=== PATIENT | female | born 1960 | race African-American/Black ===

== ENCOUNTER 2017-11-01 21:44 | Emergency (ER) | payer OTHER ==
[~2017-11-01] VITALS: Ht 165.1 cm; Wt 112.5 kg
[2017-11-01 21:51] VITALS: BP 116/70
[2017-11-01] MEDS ORDERED: ASPIR 8181 MG ORAL (21:55)
[2017-11-01] MEDS ORDERED: CEPHALEXIN500 M1 ORAL (21:55)
[2017-11-01] MEDS ORDERED: HYDROCHLOROTH12.5 M2 ORAL (21:55)
[2017-11-01] MEDS ORDERED: IBUPROFEN600 MG ORAL (21:55)
[2017-11-01] MEDS ORDERED: ATENOLOL25 MG ORAL (21:55)
[2017-11-01] MEDS ORDERED: SULFAMETHOXAZO480 ML ORAL (21:55)
[2017-11-01 22:20] VITALS: BP 116/70
--- NOTE | 2017-11-01 22:36 | Emergency Room Report ---
History of Present Illness General Chief Complaint: Skin Rash/Abscess Source: Patient Present Illness HPI 57-year-old female p/w redness/swelling/bump to right shoulder for 2 days. pain to the area. + Fever, no nausea vomiting. Patient states that she went to her primary care doctor today, who performed an incision and drainage of her abscess, states that she took one dose of her antibiotics today, she was given a prescription for Keflex and Bactrim Patient states that she feels well however states that she came to the emergency room because of the fever, has not taken any Tylenol, took one dose of Motrin She tolerated her antibiotics well, no nausea no vomiting no abdominal pain Allergies: Coded Allergies: No Known Allergies (Unverified , 11/01/17) Patient History Past Medical History: see triage record Past Surgical History: none Pertinent Family History: none Last Menstrual Period: 2010 Now: No Reviewed Nursing Documentation: PMH: Agreed, PSxH: Agreed Nursing Documentation-PMH Hx Hypertension: Yes Review of Systems All Other Systems: negative except mentioned in HPI Physical Exam Vital Signs Date Time Temp Pulse Resp B/P (MAP) Pulse Ox O2 Delivery O2 Flow Rate FiO2 11/01/17 21:45 101.1 80 18 116/70 96 Room Air Sp02 EP Interpretation: reviewed, normal General Appearance: normal inspection, well appearing, no apparent distress, alert, GCS 15, non-toxic Head: normocephalic, atraumatic Eyes: bilateral eye normal inspection, bilateral eye PERRL, bilateral eye EOMI ENT: normal ENT inspection, normal pharynx, normal voice, moist mucus membranes Neck: normal inspection, full range of motion, supple Respiratory: normal inspection, lungs clear, normal breath sounds, no respiratory distress, no retraction, no wheezing, speaking full sentences, chest symmetrical Cardiovascular #1: normal inspection, regular rate, rhythm, normal capillary refill Cardiovascular #2: 2+ radial (R), 2+ radial (L) Gastrointestinal: normal inspection, non tender, soft, non-distended, no guarding Musculoskeletal: normal inspection, back normal, normal range of motion, non- tender Neurologic: normal inspection, alert, oriented x3, responsive, motor strength/ tone normal, sensory intact, normal gait, speech normal Psychiatric: normal inspection, judgement/insight normal, memory normal Skin: other - Right shoulder with abscess status post incision and drainage, there is no bloody or purulent drainage currently, mild surrounding erythema about 3 x 3 cm, full range of motion of shoulder, no pain out of proportion Medical Decision Making Diagnostic Impression: Primary Impression: Abscess ER Course 57-year-old female p/w bump/swelling to R shoulder DDX: abscess status post incision and drainage today Plan: Tylenol ER course: Patient has remained nontoxic during ED stay, ambulatory Due to patient's benign exam, and patient is able to tolerate by mouth antibiotics, there is no indication for further workup or admission in the emergency room at this time. Disposition: Patient discharged to home. Patient is instructed to continue taking her Keflex and doxycycline as prescribed by her doctor. Patient instructed to take Tylenol and Motrin for fever and pain. Patient instructed to follow up in ED or primary care doctor's office to wound recheck in 48 hours without fail. Patient cautioned to return to ED immediately if there is rapid spread of rash, high fever or chills, inability to take by mouth antibiotics Patient verbalized understanding and agrees with plan. Please note that this Emergency Department Report was dictated using [employer] rust eradicator technology software, occasionally this can lead to erroneous entry secondary to interpretation by the dictation equipment. Last Vital Signs Date Time Temp Pulse Resp B/P (MAP) Pulse Ox O2 Delivery O2 Flow Rate FiO2 11/01/17 22:20 101.1 82 16 116/70 98 Room Air Disposition: HOME, SELF-CARE Condition: Stable Referrals: NON PHYSICIAN (PCP) Patient Instructions: Abscess Additional Instructions: Please continue to take both of your antibiotics as instructed by her primary care doctor Please take Tylenol 500 mg every 4 hours, or Motrin 600 mg every 8 hours Please return to the emergency room if you are experiencing high fever and chills despite medication, intractable nausea and vomiting, inability to take medications by mouth, or rapid spread of rash Otherwise please followup with your primary care doctor in 48 hours for wound recheck Suzanne Farmer M.D. Nov 01, 2017 22:36
== END 2017-11-01 22:20 | disposition home or self-care (01) ==
LOC: EMR 22:02
DX: L02.413 Cutaneous abscess of right upper limb (principal); I10 Essential (primary) hypertension
CPT/HCPCS: 99283

== ENCOUNTER 2017-11-03 15:06 | Inpatient (IN) | payer OTHER ==
[~2017-11-03] VITALS: Ht 165.1 cm; Wt 115.7 kg
[~2017-11-03 15:06] MED LIST: ASPIR 8181 MG ORAL; ATENOLOL25 MG ORAL; CEPHALEXIN500 M1 ORAL; HYDROCHLOROTH12.5 M2 ORAL; IBUPROFEN600 MG ORAL; SULFAMETHOXAZO480 ML ORAL
[2017-11-03] MEDS ORDERED: ATORVASTATIN CA40 MG ORAL (15:19)
[2017-11-03 15:24] VITALS: BP 143/64
[2017-11-03] MEDS ORDERED: Ampicillin/Sulbactam Sod 3 GM in NS 110 ML IVPB ONE (15:45)
[2017-11-03] MEDS ORDERED: Unasyn 3gm Inj ONE (16:03)
--- NOTE | 2017-11-03 16:05 | Diagnostic Imaging Report ---
Indication: Pain Technique: XRAY Chest 1v Comparison: None Findings: Heart size and mediastinal contours are within normal limits given technique. There is no focal consolidation, pneumothorax or pleural effusion. Mild degenerative changes of the thoracic spine. Osseous structures demonstrate no acute abnormality. Impression: No radiographic evidence of acute cardiopulmonary disease.
--- NOTE | 2017-11-03 16:11 | Emergency Room Report ---
History of Present Illness General Chief Complaint: Skin Rash/Abscess Source: Patient Present Illness HPI 57-year-old female presents ED for evaluation. Patient notes pain and swelling to her right shoulder. Was seen 2 days ago by PMD for an abscess which restrained. Was placed on antibiotics. Patient states it is getting worse. Notes increased redness and induration. Denies fevers chills. Denies chest pain or shortness of breath. States she is able to raise her shoulder. No other aggravating relieving factors. Denies any other associated symptoms Allergies: Coded Allergies: No Known Allergies (Unverified , 11/01/17) Patient History Past Medical History: DM, HTN Past Surgical History: none Pertinent Family History: none Social History: Denies: smoking, alcohol use, drug use Last Menstrual Period: hysterectomy on 2010 Now: No Immunizations: UTD Reviewed Nursing Documentation: PMH: Agreed, PSxH: Agreed Nursing Documentation-PMH Past Medical History: No History, Except For Hx Hypertension: Yes Review of Systems All Other Systems: negative except mentioned in HPI Physical Exam Vital Signs Date Time Temp Pulse Resp B/P (MAP) Pulse Ox O2 Delivery O2 Flow Rate FiO2 11/03/17 15:14 99.9 100 18 114/69 95 Room Air Sp02 EP Interpretation: reviewed, normal General Appearance: no apparent distress, alert, GCS 15, non-toxic, obese Head: normocephalic, atraumatic Eyes: bilateral eye normal inspection, bilateral eye PERRL ENT: hearing grossly normal, normal pharynx, no angioedema, normal voice Neck: full range of motion, supple/symm/no masses Respiratory: chest non-tender, lungs clear, normal breath sounds, speaking full sentences Cardiovascular #1: regular rate, rhythm, no edema Cardiovascular #2: 2+ carotid (R), 2+ carotid (L), 2+ radial (R), 2+ radial (L) , 2+ dorsalis pedis (R), 2+ dorsalis pedis (L) Gastrointestinal: normal bowel sounds, non tender, soft, non-distended, no guarding, no rebound Rectal: deferred Genitourinary: normal inspection, no CVA tenderness Musculoskeletal: back normal, gait/station normal, normal range of motion Neurologic: alert, oriented x3, responsive, motor strength/tone normal, sensory intact, speech normal Psychiatric: judgement/insight normal, memory normal, mood/affect normal, no suicidal/homicidal ideation Reflexes: 3+ bicep (R), 3+ bicep (L), 3+ tricep (R), 3+ tricep (L), 3+ knee (R) , 3+ knee (L) Skin: other - abscess with surrounding induration to R shoulder. discharge noted Lymphatic: no adenopathy Medical Decision Making Diagnostic Impression: Primary Impression: Shoulder abscess Additional Impression: Elevated troponin ER Course Hospital Course 57-year-old female presents to ED with discharge and induration/swelling to the right shoulder. Status post I&D performed by PMD 2 days ago Differential diagnoses include: Cellulitis, abscess, joint capsule infection Clinical course Patient placed on stretcher. After initial history and physical I ordered labs , blood Cx, UA, IVFs, CXR, CT labs reviewed -noted leukocytosis, Hb/Hct stable, Cr 1.4, trop 0.113, lactic acid ok CXR unremarkable EKG - NSR, no acute ischemic changes interpreted by nm CT shows soft tissue edema and infiltrate. no definiteve abscess. no joint involvement Patient denies any chest pain antibiotics given. Case discussed with Dr Herrera and he agreed to accept the patient to his service for further care and support Dr Mcmahon (surgery) consulted Diagnosis - R shoulder abscess, elevated troponin Patient admitted to telemetry in serious condition Labs Test 11/03/17 15:45 11/03/17 16:00 Urine Color Brown Urine Appearance Clear Urine pH 5 (4.5-8.0) Urine Specific [place] 1.020 (1.005-1.035) Urine Protein 2+ (NEGATIVE) Urine Glucose (UA) Negative (NEGATIVE) Urine Ketones 1+ (NEGATIVE) Urine Occult Blood 3+ (NEGATIVE) Urine Nitrite Negative (NEGATIVE) Urine Bilirubin Negative (NEGATIVE) Urine Urobilinogen 4 MG/DL (0.0-1.0) Urine Leukocyte Esterase 2+ (NEGATIVE) Urine RBC 5-10 /HPF (0 - 2) Urine WBC 2-4 /HPF (0 - 2) Urine Squamous Epithelial Cells Few /LPF (NONE/OCC) Urine Amorphous Sediment Few /LPF (NONE) Urine Bacteria Few /HPF (NONE) Urine Yeast Few /HPF (NONE) White Blood Count 14.0 K/UL (4.8-10.8) Red Blood Count 4.52 M/UL (4.20-5.40) Hemoglobin 12.6 G/DL (12.0-16.0) Hematocrit 38.4 % (37.0-47.0) Mean Corpuscular Volume 85 FL (80-99) Mean Corpuscular Hemoglobin 27.9 PG (27.0-31.0) Mean Corpuscular Hemoglobin Concent 32.8 G/DL (32.0-36.0) Red Cell Distribution Width 11.7 % (11.6-14.8) Platelet Count 301 K/UL (150-450) Mean Platelet Volume 8.1 FL (6.5-10.1) Neutrophils (%) (Auto) 81.0 % (45.0-75.0) Lymphocytes (%) (Auto) 8.9 % (20.0-45.0) Monocytes (%) (Auto) 9.2 % (1.0-10.0) Eosinophils (%) (Auto) 0.3 % (0.0-3.0) Basophils (%) (Auto) 0.6 % (0.0-2.0) Sodium Level 133 MMOL/L (136-145) Potassium Level 3.4 MMOL/L (3.5-5.1) Chloride Level 97 MMOL/L (98-107) Carbon Dioxide Level 28 MMOL/L (21-32) Anion Gap 8 mmol/L (5-15) Blood Urea Nitrogen 14 mg/dL (7-18) Creatinine 1.4 MG/DL (0.55-1.30) Estimat Glomerular Filtration Rate 47.3 mL/min (>60) Glucose Level 92 MG/DL (74-106) Lactic Acid Level 1.20 mmol/L (0.66-2.22) Calcium Level 9.5 MG/DL (8.5-10.1) Total Bilirubin 0.5 MG/DL (0.2-1.0) Aspartate Amino Transf (AST/SGOT) 28 U/L (15-37) Alanine Aminotransferase (ALT/SGPT) 42 U/L (12-78) Alkaline Phosphatase 79 U/L (46-116) Total Creatine Kinase 137 U/L (26-308) Creatine Kinase MB 1.8 NG/ML (0.0-3.6) Creatine Kinase MB Relative Index 1.3 Troponin I 0.115 ng/mL (0.000-0.056) Total Protein 8.9 G/DL (6.4-8.2) Albumin 3.6 G/DL (3.4-5.0) Globulin 5.3 g/dL Albumin/Globulin Ratio 0.7 (1.0-2.7) EKG Diagnostic Results Rate: normal Rhythm: NSR ST Segments: no acute changes ASA given to the pt in ED: No Rhythm Strip Diag. Results EP Interpretation: yes Rhythm: NSR, no PVC's, no ectopy Chest X-Ray Diagnostic Results Chest X-Ray Diagnostic Results : Chest X-Ray Ordered: Yes # of Views/Limited/Complete: 1 View Indication: Chest Pain EP Interpretation: Yes Interpretation: no consolidation, no effusion, no pneumothorax, no acute cardiopulmonary disease Impression: No acute disease Electronically Signed by: Electronically signed by Mehrdad Tellez MD CT/MRI/US Diagnostic Results CT/MRI/US Diagnostic Results : Imaging Test Ordered: CT R upper extremity with contast Impression Soft tissue edema and infiltration about the right shoulder. No drainable collection. No destructive bony changes. Surrounding nodes. Last Vital Signs Date Time Temp Pulse Resp B/P (MAP) Pulse Ox O2 Delivery O2 Flow Rate FiO2 11/03/17 15:14 99.9 100 18 114/69 95 Room Air Status: improved Disposition: ADMITTED INPATIENT Condition: Serious MEHRDAD TELLEZ M.D. Nov 03, 2017 16:11
[2017-11-03] MEDS ORDERED: Morphine Sulfate 4mg/ml Inj IVP ONE (16:15)
[2017-11-03 16:16] LABS: APPEARANCE,URINE CLEAR; KETONES,URINE 1+ (NEGATIVE); LEUKOCYTE ESTERASE ,URINE 2+ (NEGATIVE); NITRITE,URINE NEGATIVE (NEGATIVE); PH,URINE 5 (4.5-8.0); PROTEIN,URINE 2+ (NEGATIVE); UROBILINOGEN,URINE 4 MG/DL (0.0-1.0)
[2017-11-03 16:22] LABS: BASOPHILS % (AUTO) 0.6 % (0.0-2.0); EOSINOPHILS % (AUTO) 0.3 % (0.0-3.0); LYMPHOCYTES % (AUTO) 8.9 % (20.0-45.0); MEAN CORPUSCULAR HEMOGLOBIN 27.9 PG (27.0-31.0); MEAN CORPUSCULAR HGB CONC 32.8 G/DL (32.0-36.0); MEAN CORPUSCULAR VOLUME 85 FL (80-99); MEAN PLATELET VOLUME 8.1 FL (6.5-10.1); MONOCYTES % (AUTO) 9.2 % (1.0-10.0); PLATELET COUNT 301 K/UL (150-450); RED BLOOD COUNT 4.52 M/UL (4.20-5.40); RED CELL DISTRIBUTION WIDTH 11.7 % (11.6-14.8)
[2017-11-03 16:26] LABS: AMORPHOUS SEDIMENT,UR FEW /LPF; BACTERIA,URINE FEW /HPF; SQUAMOUS EPITHELIAL CELL,UR FEW /LPF (NONE/OCC); YEAST,URINE FEW /HPF
[2017-11-03 16:27] LABS: ANION GAP 8 mmol/L (5-15); CALCIUM 9.5 MG/DL (8.5-10.1); CARBON DIOXIDE 28 MMOL/L (21-32); CHLORIDE 97 MMOL/L (98-107); CREATININE 1.4 MG/DL (0.55-1.30); GLOMERULAR FILTRATION RATE 47.3 mL/min (>60); POTASSIUM 3.4 MMOL/L (3.5-5.1); SODIUM 133 MMOL/L (136-145)
[2017-11-03 16:40] LABS: ALANINE AMINOTRANSFERASE 42 U/L (12-78); ALBUMIN/GLOBULIN RATIO 0.7 (1.0-2.7); ASPARTATE AMINO TRANSFERASE 28 U/L (15-37); CKMB 1.8 NG/ML (0.0-3.6); TOTAL PROTEIN 8.9 G/DL (6.4-8.2)
[2017-11-03 17:00] VITALS: BP 127/65
[2017-11-03] MEDS ORDERED: BACTRIM DS TAB1 EAC1 ORAL (17:33)
[2017-11-03] MEDS ORDERED: CALCIUM500 M2 PO (17:36)
[2017-11-03] MEDS ORDERED: VITAMIN D5000 UNI1 PO (17:36)
[2017-11-03] MEDS ORDERED: Miralax 17gm pkt ORAL PRN (18:45)
[2017-11-03] MEDS ORDERED: Albuterol/Ipratropium 3ml neb HHN PRN (18:45)
[2017-11-03] MEDS ORDERED: Morphine Sulfate 2mg/ml Inj IVP PRN (18:45)
[2017-11-03] MEDS ORDERED: Nitroglycerin Subl 0.4mg tab SL PRN (18:45)
[2017-11-03 19:20] VITALS: BP 120/61
[2017-11-03] MEDS ORDERED: Cefepime HCl 2 GM in D5W 110 ML IV SCH (20:00)
--- NOTE | 2017-11-03 20:08 | Consultation ---
History of Present Illness General Date patient seen: Nov 03, 2017 Chief Complaint: Skin Rash/Abscess Referring physician: Dr. Herrera Present Illness HPI 57 yo gentle lady with pmhx morbid obesity, hysterectomy, uterine fibroids, dyslipidemia, right shoulder pain due to a superficial abscess and HTN presents to [facility] emergency room with complaint of a shoulder abscess/wound status post unsuccessfull incision and drainage that keeps growing and causing significant pain and distress. I was asked to consult on this case from an internal medicine point of view, the patient says that initially a few weeks ago she noticed a small pimple on her right shoulder. She presented to her primary care physician a few days ago for a incision and drainage of her large shoulder faruncle, she was told by her primary care doctor that the wound was too extensive to be treated in the office, she presents to the emergency room for assistance with respect to her shoulder wound status post incomplete incision and drainage. Allergies: Coded Allergies: [place] (Verified Allergy, Unknown, 11/04/17) Medication History Scheduled Aspirin* (Aspir 81*), 81 MG ORAL DAILY, (Reported) Atenolol* (Tenormin*), 25 MG ORAL DAILY, (Reported) Atorvastatin Calcium* (Atorvastatin Calcium*), 40 MG ORAL BEDTIME, (Reported) Calcium Carbonate (Calcium), 500 MG PO DAILY, (Reported) Cephalexin* (Cephalexin*), 500 MG ORAL EVERY 6 HOURS, (Reported) Cephalexin* (Keflex*), 500 MG ORAL EVERY 6 HOURS, (Reported) Cholecalciferol (Vitamin D3) (Vitamin D), 5,000 UNIT PO DAILY, (Reported) Hydrochlorothiazide* (Hydrochlorothiazide*), 12.5 MG ORAL DAILY, (Reported) Ibuprofen* (Motrin*), 800 MG ORAL FOUR TIMES A DAY, (Reported) Trimethoprim/Sulfamethoxazole 160/800* (Bactrim Ds Tablet*), 1 TAB ORAL TWICE A DAY, (Reported) Patient History Healthcare decision maker Resuscitation status Advanced Directive on File Past Medical/Surgical History Past Medical/Surgical History: (1) Abscess (2) HTN (hypertension) Review of Systems Musculoskeletal: Reports: joint pain, joint swelling, muscle pain, muscle stiffness Skin: Reports: lesions, other - right shoulder wound Physical Exam General Appearance: mild distress, overweight, obese Lines, tubes and drains: peripheral HEENT: normocephalic, atraumatic, anicteric, PERRL Neck: non-tender, normal alignment, supple, normal inspection Respiratory/Chest: chest wall non-tender, lungs clear, normal breath sounds, no respiratory distress, no accessory muscle use Breasts: no masses Cardiovascular/Chest: normal peripheral pulses, normal rate, regular rhythm, no JVD Abdomen: normal bowel sounds, non tender, soft, no organomegaly, no mass Genitourinary/Rectal: normal genital exam, normal rectal exam Extremities: no calf tenderness, normal capillary refill, other - large open wound right shoulder with dried blood and dried purulence bandages Skin Exam: palled, rash 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, no motor/sensory deficits Last 24 Hour Vital Signs Date Time Temp Pulse Resp B/P (MAP) Pulse Ox O2 Delivery O2 Flow Rate FiO2 11/03/17 19:20 99.0 92 24 120/61 96 Room Air 11/03/17 19:20 99.0 92 24 120/61 96 Room Air 11/03/17 17:00 88 19 127/65 97 Room Air 11/03/17 15:24 99.5 91 17 143/64 95 Room Air 11/03/17 15:14 99.9 100 18 114/69 95 Room Air Intake and Output 11/03/17 11/04/17 19:00 07:00 Intake Total 1110 ml Balance 1110 ml Intake Oral 0 ml IV Total 1110 ml # Voids 1 Laboratory Tests Test 11/03/17 15:45 11/03/17 16:00 Urine Color Brown Urine Appearance Clear Urine pH 5 (4.5-8.0) Urine Specific [place] 1.020 (1.005-1.035) Urine Protein 2+ (NEGATIVE) H Urine Glucose (UA) Negative (NEGATIVE) Urine Ketones 1+ (NEGATIVE) H Urine Occult Blood 3+ (NEGATIVE) H Urine Nitrite Negative (NEGATIVE) Urine Bilirubin Negative (NEGATIVE) Urine Urobilinogen 4 MG/DL (0.0-1.0) H Urine Leukocyte Esterase 2+ (NEGATIVE) H Urine RBC 5-10 /HPF (0 - 2) H Urine WBC 2-4 /HPF (0 - 2) Urine Squamous Epithelial Cells Few /LPF (NONE/OCC) Urine Amorphous Sediment Few /LPF (NONE) H Urine Bacteria Few /HPF (NONE) Urine Yeast Few /HPF (NONE) H White Blood Count 14.0 K/UL (4.8-10.8) H Red Blood Count 4.52 M/UL (4.20-5.40) Hemoglobin 12.6 G/DL (12.0-16.0) Hematocrit 38.4 % (37.0-47.0) Mean Corpuscular Volume 85 FL (80-99) Mean Corpuscular Hemoglobin 27.9 PG (27.0-31.0) Mean Corpuscular Hemoglobin Concent 32.8 G/DL (32.0-36.0) Red Cell Distribution Width 11.7 % (11.6-14.8) Platelet Count 301 K/UL (150-450) Mean Platelet Volume 8.1 FL (6.5-10.1) Neutrophils (%) (Auto) 81.0 % (45.0-75.0) H Lymphocytes (%) (Auto) 8.9 % (20.0-45.0) L Monocytes (%) (Auto) 9.2 % (1.0-10.0) Eosinophils (%) (Auto) 0.3 % (0.0-3.0) Basophils (%) (Auto) 0.6 % (0.0-2.0) Sodium Level 133 MMOL/L (136-145) L Potassium Level 3.4 MMOL/L (3.5-5.1) L Chloride Level 97 MMOL/L (98-107) L Carbon Dioxide Level 28 MMOL/L (21-32) Anion Gap 8 mmol/L (5-15) Blood Urea Nitrogen 14 mg/dL (7-18) Creatinine 1.4 MG/DL (0.55-1.30) H Estimat Glomerular Filtration Rate 47.3 mL/min (>60) Glucose Level 92 MG/DL (74-106) Lactic Acid Level 1.20 mmol/L (0.66-2.22) Calcium Level 9.5 MG/DL (8.5-10.1) Total Bilirubin 0.5 MG/DL (0.2-1.0) Aspartate Amino Transf (AST/SGOT) 28 U/L (15-37) Alanine Aminotransferase (ALT/SGPT) 42 U/L (12-78) Alkaline Phosphatase 79 U/L (46-116) Total Creatine Kinase 137 U/L (26-308) Creatine Kinase MB 1.8 NG/ML (0.0-3.6) Creatine Kinase MB Relative Index 1.3 Troponin I 0.115 ng/mL (0.000-0.056) Total Protein 8.9 G/DL (6.4-8.2) H Albumin 3.6 G/DL (3.4-5.0) Globulin 5.3 g/dL Albumin/Globulin Ratio 0.7 (1.0-2.7) L Height (Feet): 5 Height (Inches): 5.00 Weight (Pounds): 248 Medications Current Medications Medications (Trade) Dose Ordered Sig/Luke Route PRN Reason Start Time Stop Time Status Last Admin Dose Admin Acetaminophen (Tylenol) 650 mg Q4H PRN ORAL T>100.5 11/03/17 18:45 12/03/17 18:44 Albuterol/ Ipratropium (Albuterol/ Ipratropium) 3 ml Q4H PRN HHN Shortness of Breath 11/03/17 18:45 11/08/17 18:44 Aspirin (Ecotrin) 81 mg DAILY ORAL 11/04/17 09:00 12/04/17 08:59 Atenolol (Tenormin) 25 mg DAILY ORAL 11/04/17 09:00 12/04/17 08:59 Atorvastatin Calcium (Lipitor) 40 mg BEDTIME ORAL 11/03/17 21:00 12/03/17 20:59 Cefepime HCl 2 gm/ Dextrose 55 ml @ 110 mls/hr Q12HR@0800,2000 IV 11/03/17 20:00 11/10/17 19:59 Dextrose (Dextrose 50%) STAT PRN IV Hypoglycemia 11/03/17 18:45 12/03/17 18:44 Heparin Sodium (Porcine) (Heparin 5000 units/ml) 5,000 units EVERY 12 HOURS SUBQ 11/03/17 21:00 12/03/17 20:59 Morphine Sulfate (Morphine Sulfate) 2 mg Q4H PRN IVP Moderate Pain (Pain Scale 4-6) 11/03/17 18:45 11/10/17 18:44 Nitroglycerin (Ntg) 0.4 mg Q5MIN X 3 DOSES PRN SL Prn Chest Pain 11/03/17 18:45 12/03/17 18:44 Ondansetron HCl (Zofran) 4 mg Q6H PRN IVP Nausea & Vomiting 11/03/17 18:45 12/03/17 18:44 Polyethylene Glycol (Miralax) 17 gm DAILYPRN PRN ORAL Constipation 11/03/17 18:45 12/03/17 18:44 Temazepam (Restoril) 15 mg HSPRN PRN ORAL Insomnia 11/03/17 21:00 11/10/17 20:59 Vancomycin HCl (Vanco rx to dose) 1 ea DAILY PRN MISC . 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
[2017-11-03 21:00] VITALS: BP 121/60
[2017-11-03] MEDS ORDERED: Vancomycin 2 GM in D5W 500ml 550 ML IVPB ONE (21:00)
[2017-11-03] MEDS ORDERED: Heparin 5000 units/ml inj SUBQ SCH (21:00)
[2017-11-03] MEDS: Atorvastatin 20mg tab ORAL SCH (21:28)
[2017-11-03] MEDS: Cefepime HCl 2 GM in D5W 55 ML IV SCH (21:29)
[2017-11-04] VITALS: BP 112/58
[2017-11-04] MEDS ORDERED: Vancomycin 1 GM in D5W 275 ML IV SCH (00:30)
[2017-11-04 04:00] VITALS: BP 104/50
[2017-11-04] MEDS ORDERED: guaiFENesin DM 100mg/5ml ORAL PRN (05:15)
[2017-11-04 06:18] LABS: PROTHROMBIN TIME 10.2 SEC (9.30-11.50)
[2017-11-04 06:21] LABS: BASOPHILS % (AUTO) 0.6 % (0.0-2.0); EOSINOPHILS % (AUTO) 0.7 % (0.0-3.0); LYMPHOCYTES % (AUTO) 13.8 % (20.0-45.0); MEAN CORPUSCULAR HEMOGLOBIN 28.4 PG (27.0-31.0); MEAN CORPUSCULAR HGB CONC 33.2 G/DL (32.0-36.0); MEAN CORPUSCULAR VOLUME 85 FL (80-99); MEAN PLATELET VOLUME 7.1 FL (6.5-10.1); MONOCYTES % (AUTO) 14.4 % (1.0-10.0); NEUTROPHILS % (AUTO) 70.6 % (45.0-75.0); PLATELET COUNT 241 K/UL (150-450); RED BLOOD COUNT 3.84 M/UL (4.20-5.40); RED CELL DISTRIBUTION WIDTH 11.8 % (11.6-14.8); WHITE BLOOD COUNT 9.5 K/UL (4.8-10.8)
[2017-11-04 06:29] LABS: ALANINE AMINOTRANSFERASE 35 U/L (12-78); ALBUMIN/GLOBULIN RATIO 0.6 (1.0-2.7); ANION GAP 8 mmol/L (5-15); ASPARTATE AMINO TRANSFERASE 26 U/L (15-37); CALCIUM 8.9 MG/DL (8.5-10.1); CARBON DIOXIDE 25 MMOL/L (21-32); CHLORIDE 101 MMOL/L (98-107); CREATININE 1.2 MG/DL (0.55-1.30); GLOMERULAR FILTRATION RATE 56.6 mL/min (>60); POTASSIUM 3.5 MMOL/L (3.5-5.1); SODIUM 134 MMOL/L (136-145); TOTAL PROTEIN 7.4 G/DL (6.4-8.2)
--- NOTE | 2017-11-04 07:59 | Pulmonology Progress Note ---
Assessment/Plan Assessment/Plan ASSESSMENT Elevated troponin , mild elevation, 1 occasion only - resolved R shoulder abscess cellulitis shoulder s/p I&D R shoulder abscess at the bedside 11/04 leukocytosis HTN morbid obesity dehydration dyslipidemia PLAN OF CARE MALIKA serial troponin , second troponin negative cardio eval ECHO with pEF 70% and RVSP of 21 patient with no cardiac symptoms, likely atypical CP BP management with BB continue ASA statin O2 HHN prn CT R shoulder with Evidence of soft tissue cellulitis about the right shoulder No drainable abscess or evidence of significant bony abnormality surgery eval appreciated s/p I&D R shoulder abscess at the bedside 11/04 abx ID eval wound care pain management DVT prophylaxis Bowel regimen Venous Duplex BLE case discussed and evaluated by supervising physician Subjective Allergies: Coded Allergies: [place] (Verified Allergy, Unknown, 11/04/17) Subjective reports intermittent pain in R shoulder started after she picked up a pimple noted purulent drainage denies chest pain, SOB, palpitations, dizziness recent bronchitics , had abx, still cough, intermittent, with minimum phlegm production Objective Last 24 Hour Vital Signs Date Time Temp Pulse Resp B/P (MAP) Pulse Ox O2 Delivery O2 Flow Rate FiO2 11/04/17 04:00 99.6 87 20 104/50 95 Room Air 11/04/17 04:00 85 11/04/17 01:14 100.1 11/04/17 00:00 97 11/04/17 00:00 101.9 103 20 112/58 95 Room Air 11/03/17 21:42 88 20 Room Air 11/03/17 21:00 100.4 102 18 121/60 99 Room Air 11/03/17 20:00 98 11/03/17 19:20 99.0 92 24 120/61 96 Room Air 11/03/17 19:20 99.0 92 24 120/61 96 Room Air 11/03/17 17:00 88 19 127/65 97 Room Air 11/03/17 15:24 99.5 91 17 143/64 95 Room Air 11/03/17 15:14 99.9 100 18 114/69 95 Room Air General Appearance: WD/WN HEENT: normocephalic, atraumatic, anicteric, mucous membranes moist, PERRL Respiratory/Chest: lungs clear, no respiratory distress, no accessory muscle use Cardiovascular: normal rate, regular rhythm - SR on tele Abdomen: soft, non tender, non distended Genitourinary: normal external genitalia Extremities: no edema, pedal pulses normal Skin: other - R shoudler with erythema, edema, TTP Neurologic/Psychiatric: no motor/sensory deficits, alert, oriented x 3, responsive Microbiology Date/Time Source Procedure Growth Status 11/03/17 15:45 Urine,Clean Catch Urine Culture - Preliminary NO GROWTH Resulted Laboratory Tests 11/03/17 15:45: Urine Color Brown, Urine Appearance Clear, Urine pH 5, Urine Specific [place] 1.020, Urine Protein 2+H, Urine Glucose (UA) Negative, Urine Ketones 1+H, Urine Occult Blood 3+H, Urine Nitrite Negative, Urine Bilirubin Negative, Urine Urobilinogen 4H, Urine Leukocyte Esterase 2+H, Urine RBC 5-10H, Urine WBC 2-4, Urine Squamous Epithelial Cells Few, Urine Amorphous Sediment FewH, Urine Bacteria Few, Urine Yeast FewH 11/03/17 16:00: White Blood Count 14.0H, Red Blood Count 4.52, Hemoglobin 12.6, Hematocrit 38.4 , Mean Corpuscular Volume 85, Mean Corpuscular Hemoglobin 27.9, Mean Corpuscular Hemoglobin Concent 32.8, Red Cell Distribution Width 11.7, Platelet Count 301, Mean Platelet Volume 8.1, Neutrophils (%) (Auto) 81.0H, Lymphocytes ( %) (Auto) 8.9L, Monocytes (%) (Auto) 9.2, Eosinophils (%) (Auto) 0.3, Basophils (%) (Auto) 0.6, Sodium Level 133L, Potassium Level 3.4L, Chloride Level 97L, Carbon Dioxide Level 28, Anion Gap 8, Blood Urea Nitrogen 14, Creatinine 1.4H, Estimat Glomerular Filtration Rate 47.3, Glucose Level 92, Lactic Acid Level 1.20, Calcium Level 9.5, Total Bilirubin 0.5, Aspartate Amino Transf (AST/SGOT) 28, Alanine Aminotransferase (ALT/SGPT) 42, Alkaline Phosphatase 79, Total Creatine Kinase 137, Creatine Kinase MB 1.8, Creatine Kinase MB Relative Index 1.3, Troponin I 0.115H, Total Protein 8.9H, Albumin 3.6, Globulin 5.3, Albumin/ Globulin Ratio 0.7L 11/04/17 03:40: White Blood Count 9.5, Red Blood Count 3.84L, Hemoglobin 10.9L, Hematocrit 32.8L , Mean Corpuscular Volume 85, Mean Corpuscular Hemoglobin 28.4, Mean Corpuscular Hemoglobin Concent 33.2, Red Cell Distribution Width 11.8, Platelet Count 241, Mean Platelet Volume 7.1, Neutrophils (%) (Auto) 70.6, Lymphocytes (% ) (Auto) 13.8L, Monocytes (%) (Auto) 14.4H, Eosinophils (%) (Auto) 0.7, Basophils (%) (Auto) 0.6, Sodium Level 134L, Potassium Level 3.5, Chloride Level 101, Carbon Dioxide Level 25, Anion Gap 8, Blood Urea Nitrogen 12, Creatinine 1.2, Estimat Glomerular Filtration Rate 56.6, Glucose Level 94, Calcium Level 8.9, Total Bilirubin 0.4, Aspartate Amino Transf (AST/SGOT) 26, Alanine Aminotransferase (ALT/SGPT) 35, Alkaline Phosphatase 71, Troponin I 0.006, Total Protein 7.4, Albumin 2.9L, Globulin 4.5, Albumin/Globulin Ratio 0.6L, Prothrombin Time 10.2, Prothromb Time International Ratio 1.0, Activated Partial Thromboplast Time 31, Pro-B-Type Natriuretic Peptide 87 Current Medications Medications (Trade) Dose Ordered Sig/Luke Route PRN Reason Start Time Stop Time Status Last Admin Dose Admin Acetaminophen (Tylenol) 650 mg Q4H PRN ORAL T>100.5 11/03/17 18:45 12/03/17 18:44 11/04/17 00:15 Albuterol/ Ipratropium (Albuterol/ Ipratropium) 3 ml Q4H PRN HHN Shortness of Breath 11/03/17 18:45 11/08/17 18:44 Atenolol (Tenormin) 25 mg DAILY ORAL 11/04/17 09:00 12/04/17 08:59 Atorvastatin Calcium (Lipitor) 40 mg BEDTIME ORAL 11/03/17 21:00 12/03/17 20:59 11/03/17 21:28 Cefepime HCl 2 gm/ Dextrose 55 ml @ 110 mls/hr Q12HR@0800,2000 IV 11/03/17 20:00 11/10/17 19:59 11/03/17 21:29 Dextrose (Dextrose 50%) STAT PRN IV Hypoglycemia 11/03/17 18:45 12/03/17 18:44 Guaifenesin/ Dextromethorphan (Robitussin DM) 10 ml Q6H PRN ORAL For Cough 11/04/17 05:15 12/04/17 05:14 Morphine Sulfate (Morphine Sulfate) 2 mg Q4H PRN IVP Moderate Pain (Pain Scale 4-6) 11/03/17 18:45 11/10/17 18:44 Nitroglycerin (Ntg) 0.4 mg Q5MIN X 3 DOSES PRN SL Prn Chest Pain 11/03/17 18:45 12/03/17 18:44 Ondansetron HCl (Zofran) 4 mg Q6H PRN IVP Nausea & Vomiting 11/03/17 18:45 12/03/17 18:44 Polyethylene Glycol (Miralax) 17 gm DAILYPRN PRN ORAL Constipation 11/03/17 18:45 12/03/17 18:44 Temazepam (Restoril) 15 mg HSPRN PRN ORAL Insomnia 11/03/17 21:00 11/10/17 20:59 Vancomycin HCl (Vanco rx to dose) 1 ea DAILY PRN MISC . 11/03/17 18:45 12/03/17 18:44 Vancomycin HCl/ Dextrose 250 ml @ 166.667 mls/hr Q12HR IVPB 11/04/17 09:00 11/09/17 08:59 Isaiah (Lisa)Krystal NP Nov 04, 2017 07:59
--- NOTE | 2017-11-04 08:37 | Diagnostic Imaging Report ---
Indication: Right shoulder pain Technique: IV administration nonionic contrast. Spiral acquisitions obtained through the 6 right shoulder Multiplanar is reconstructions were generated. Total dose length product 556 mGycm. CTDIvol(s) 24 mGy. Radiation dose was minimized using automated exposure control Comparison: none Findings: Anteriorly laterally, there is edema of the skin and subcutaneous fat. No focal collections to suggest abscess demonstrated. No significant joint effusion. Minimal vacuum formation is seen within the glenohumeral joint. Prominent but not frankly enlarged axillary lymph nodes are noted. No significant osseous abnormality demonstrated. Impression: Evidence of soft tissue cellulitis about the right shoulder No drainable abscess or evidence of significant bony abnormality Nonspecific prominent axillary nodes This agrees with the preliminary interpretation provided overnight by [facility] teleradiology service. The CT scanner at [facility] is accredited by the [employer] and the scans are performed using protocols designed to limit radiation exposure to as low as reasonably achievable to attain images of sufficient resolution adequate for diagnostic evaluation.
[2017-11-04 08:39] VITALS: BP 126/62
[2017-11-04] MEDS: Cefepime HCl 2 GM in D5W 55 ML IV SCH (08:56)
[2017-11-04] MEDS: Vancomycin 1250mg/D5W 250ml IVPB SCH ×2 (08:57→21:21)
[2017-11-04] MEDS: Atenolol 25mg tab ORAL SCH (08:57)
[2017-11-04] MEDS ORDERED: Aspirin EC 81mg tab ORAL SCH (09:00)
[2017-11-04 12:00] VITALS: BP 130/69
[2017-11-04] MEDS ORDERED: Lidocaine 1% 10mg/ml/Epi 0.005mg/ml 30ml vial INJ ONE (12:00)
--- NOTE | 2017-11-04 12:42 | Wound Care Consultation ---
Wound Assessment Wound Assessment : Wound Number: 1 Wound Present on Admission: Yes New Wound: No Status Change of Wound: No Wound Location Body Site Modif: right Wound Location Body Site: shoulder Wound Type: abscess [place] Test: Does not [place] Wound Thickness: Full Thickness Wound Length: 1.0 Wound Width: 1.[address] [place]/Red: 20 Percent of Wound Bed Yellow/Wh: 80 Wound Drainage Description: Serosanguineous Wound Drainage Amount: Moderate Wound Drainage Odor: Mild Odor Tissue Surrounding Wound: Indurated - Erythemic Wound General Appearance: Reddened - yellow, Draining Wound Comment #1 Right shoulder abscess. Surrounding skin Erythemic/Indurated Recommendation -Cleanse with saline pat dry apply adaptic cover with Bordered gauze daily and PRN soiled/dislodged -Assess and f/u with MD for any changes -Keep clean and dry -Optimize nutrition SHAHRZAD PINEDO RN Nov 04, 2017 12:42
--- NOTE | 2017-11-04 12:43 | Brief Operative Note ---
Immediate Post Operative Note Operative Note Pre-op Diagnosis: right shoulder abscess Procedure: incision and drainage of right shoulder abscess Post-op Diagnosis: same as pre-op Surgeon: es Anesthesia: local Specimen: yes - cultures Complications: none Condition: stable Fluids: n/a Estimated Blood Loss: minimal Drains: none Implant(s) used?: No Brian Mcmahon Nov 04, 2017 12:43
[2017-11-04] MEDS ORDERED: Guaifenesin/DM 10ml syrup ORAL PRN (13:00)
--- NOTE | 2017-11-04 14:32 | Consultation ---
History of Present Illness General Date patient seen: Nov 04, 2017 Chief Complaint: Skin Rash/Abscess Reason for Consultation: right shoulder abscess Present Illness HPI 57 year old female presented with worsening right shoulder abscess. States that 3 weeks ago she first noted a small "pimple" on her right shoulder. She drained the pimple with pressure but over the subsequent days it began to enlarge and cause discomfort. states in the past 2-3 days it has worsened with increasing redness, warmth, tenderness. She went to her PCP who made small I&D and began draining pus. Unfortunately did not improve after and came to ED for evaluation. In ED CT performed which demonstrated moderate right shoulder cellulitis. Surgery called to evaluate. When seen at bedside patient state she feels okay but has sharp pain in right shoulder. subjective fevers. no n/v. has some drainage. when examined at bedside I can note purulent drainage with minimal palpation. Allergies: Coded Allergies: [place] (Verified Allergy, Unknown, 11/04/17) Medication History Scheduled Aspirin* (Aspir 81*), 81 MG ORAL DAILY, (Reported) Atenolol* (Tenormin*), 25 MG ORAL DAILY, (Reported) Atorvastatin Calcium* (Atorvastatin Calcium*), 40 MG ORAL BEDTIME, (Reported) Calcium Carbonate (Calcium), 500 MG PO DAILY, (Reported) Cephalexin* (Cephalexin*), 500 MG ORAL EVERY 6 HOURS, (Reported) Cholecalciferol (Vitamin D3) (Vitamin D), 5,000 UNIT PO DAILY, (Reported) Hydrochlorothiazide* (Hydrochlorothiazide*), 12.5 MG ORAL DAILY, (Reported) Ibuprofen* (Motrin*), 800 MG ORAL FOUR TIMES A DAY, (Reported) Trimethoprim/Sulfamethoxazole 160/800* (Bactrim Ds Tablet*), 1 TAB ORAL TWICE A DAY, (Reported) Patient History History Provided By: Patient, Medical Record Healthcare decision maker Resuscitation status Full Code Advanced Directive on File Past Medical/Surgical History Past Medical/Surgical History: (1) Abscess (2) Elevated troponin (3) Shoulder abscess Review of Systems Constitutional: Denies: no symptoms, see HPI, chills, sweats, fever, malaise, weakness, other Eye: Denies: no symptoms, see HPI, eye pain, blurred vision, tearing, double vision, nose pain, nose congestion, acuity changes, discharge, other ENT: Denies: no symptoms, see HPI, ear pain, ear discharge, nose pain, nose congestion, throat pain, throat swelling, mouth pain, hearing loss, nasal discharge, other Respiratory: Denies: no symptoms, see HPI, cough, orthopnea, shortness of breath, stridor, wheezing, CHAVES, sputum, other Cardiovascular: Denies: no symptoms, see HPI, chest pain, edema, palpitations, syncope, PND, other Gastrointestinal: Denies: no symptoms, see HPI, abdominal pain, constipation, diarrhea, nausea, vomiting, melena, hematemesis, other Genitourinary: Denies: no symptoms, see HPI, discharge, dysuria, frequency, hematuria, pain, retention, incontinence, urgency, vag bleed/dc, other Musculoskeletal: Denies: no symptoms, see HPI, back pain, gout, joint pain, joint swelling, muscle pain, muscle stiffness, other Skin: Denies: no symptoms, see HPI, rash, change in color, change in hair/nails , dryness, lesions, other Psychiatric: Denies: no symptoms, see HPI, prior hx, anxiety, depressed feelings, emotional problems, SI, HI, hallucinations, other Neurological: Denies: no symptoms, see HPI, headache, numbness, paresthesia, seizure, tingling, tremors, focal weakness, syncope, dizziness, other Endocrine: Denies: no symptoms, see HPI, excessive sweating, flushing, intolerance to temperature, increased thirst, increased urine, unexplained weight loss, other Hematologic/Lymphatic: Denies: no symptoms, see HPI, anemia, blood clots, easy bleeding, easy bruising, swollen glands, diathesis, other All Other Systems: negative except mentioned in HPI Physical Exam General Appearance: WD/WN, no apparent distress, alert Lines, tubes and drains: peripheral HEENT: normocephalic, atraumatic, PERRL Neck: supple, normal inspection Respiratory/Chest: normal breath sounds, no respiratory distress, no accessory muscle use Cardiovascular/Chest: normal peripheral pulses, normal rate, regular rhythm Abdomen: normal bowel sounds, non tender, soft, no organomegaly, no mass Extremities: other - abscess in right shoulder with surrounding cellulitis. 1cm area of opening with purulet drainage. erythyma, warmth. Skin Exam: normal pigmentation Neurologic: alert, oriented x 3, responsive Last 24 Hour Vital Signs Date Time Temp Pulse Resp B/P (MAP) Pulse Ox O2 Delivery O2 Flow Rate FiO2 11/04/17 12:33 83 11/04/17 12:00 99.0 83 21 130/69 96 Room Air 11/04/17 08:57 88 126/62 11/04/17 08:39 99.1 88 21 126/62 98 Room Air 11/04/17 08:00 86 11/04/17 04:00 99.6 87 20 104/50 95 Room Air 11/04/17 04:00 85 11/04/17 01:14 100.1 11/04/17 00:00 97 11/04/17 00:00 101.9 103 20 112/58 95 Room Air 11/03/17 21:42 88 20 Room Air 11/03/17 21:00 100.4 102 18 121/60 99 Room Air 11/03/17 20:00 98 11/03/17 19:20 99.0 92 24 120/61 96 Room Air 11/03/17 19:20 99.0 92 24 120/61 96 Room Air 11/03/17 17:00 88 19 127/65 97 Room Air 11/03/17 15:24 99.5 91 17 143/64 95 Room Air 11/03/17 15:14 99.9 100 18 114/69 95 Room Air Laboratory Tests Test 11/03/17 15:45 11/03/17 16:00 11/04/17 03:40 Urine Color Brown Urine Appearance Clear Urine pH 5 (4.5-8.0) Urine Specific [place] 1.020 (1.005-1.035) Urine Protein 2+ (NEGATIVE) H Urine Glucose (UA) Negative (NEGATIVE) Urine Ketones 1+ (NEGATIVE) H Urine Occult Blood 3+ (NEGATIVE) H Urine Nitrite Negative (NEGATIVE) Urine Bilirubin Negative (NEGATIVE) Urine Urobilinogen 4 MG/DL (0.0-1.0) H Urine Leukocyte Esterase 2+ (NEGATIVE) H Urine RBC 5-10 /HPF (0 - 2) H Urine WBC 2-4 /HPF (0 - 2) Urine Squamous Epithelial Cells Few /LPF (NONE/OCC) Urine Amorphous Sediment Few /LPF (NONE) H Urine Bacteria Few /HPF (NONE) Urine Yeast Few /HPF (NONE) H White Blood Count 14.0 K/UL (4.8-10.8) H 9.5 K/UL (4.8-10.8) Red Blood Count 4.52 M/UL (4.20-5.40) 3.84 M/UL (4.20-5.40) L Hemoglobin 12.6 G/DL (12.0-16.0) 10.9 G/DL (12.0-16.0) L Hematocrit 38.4 % (37.0-47.0) 32.8 % (37.0-47.0) L Mean Corpuscular Volume 85 FL (80-99) 85 FL (80-99) Mean Corpuscular Hemoglobin 27.9 PG (27.0-31.0) 28.4 PG (27.0-31.0) Mean Corpuscular Hemoglobin Concent 32.8 G/DL (32.0-36.0) 33.2 G/DL (32.0-36.0) Red Cell Distribution Width 11.7 % (11.6-14.8) 11.8 % (11.6-14.8) Platelet Count 301 K/UL (150-450) 241 K/UL (150-450) Mean Platelet Volume 8.1 FL (6.5-10.1) 7.1 FL (6.5-10.1) Neutrophils (%) (Auto) 81.0 % (45.0-75.0) H 70.6 % (45.0-75.0) Lymphocytes (%) (Auto) 8.9 % (20.0-45.0) L 13.8 % (20.0-45.0) L Monocytes (%) (Auto) 9.2 % (1.0-10.0) 14.4 % (1.0-10.0) H Eosinophils (%) (Auto) 0.3 % (0.0-3.0) 0.7 % (0.0-3.0) Basophils (%) (Auto) 0.6 % (0.0-2.0) 0.6 % (0.0-2.0) Sodium Level 133 MMOL/L (136-145) L 134 MMOL/L (136-145) L Potassium Level 3.4 MMOL/L (3.5-5.1) L 3.5 MMOL/L (3.5-5.1) Chloride Level 97 MMOL/L (98-107) L 101 MMOL/L (98-107) Carbon Dioxide Level 28 MMOL/L (21-32) 25 MMOL/L (21-32) Anion Gap 8 mmol/L (5-15) 8 mmol/L (5-15) Blood Urea Nitrogen 14 mg/dL (7-18) 12 mg/dL (7-18) Creatinine 1.4 MG/DL (0.55-1.30) H 1.2 MG/DL (0.55-1.30) Estimat Glomerular Filtration Rate 47.3 mL/min (>60) 56.6 mL/min (>60) Glucose Level 92 MG/DL (74-106) 94 MG/DL (74-106) Lactic Acid Level 1.20 mmol/L (0.66-2.22) Calcium Level 9.5 MG/DL (8.5-10.1) 8.9 MG/DL (8.5-10.1) Total Bilirubin 0.5 MG/DL (0.2-1.0) 0.4 MG/DL (0.2-1.0) Aspartate Amino Transf (AST/SGOT) 28 U/L (15-37) 26 U/L (15-37) Alanine Aminotransferase (ALT/SGPT) 42 U/L (12-78) 35 U/L (12-78) Alkaline Phosphatase 79 U/L (46-116) 71 U/L (46-116) Total Creatine Kinase 137 U/L (26-308) Creatine Kinase MB 1.8 NG/ML (0.0-3.6) Creatine Kinase MB Relative Index 1.3 Troponin I 0.115 ng/mL (0.000-0.056) 0.006 ng/mL (0.000-0.056) Total Protein 8.9 G/DL (6.4-8.2) H 7.4 G/DL (6.4-8.2) Albumin 3.6 G/DL (3.4-5.0) 2.9 G/DL (3.4-5.0) L Globulin 5.3 g/dL 4.5 g/dL Albumin/Globulin Ratio 0.7 (1.0-2.7) L 0.6 (1.0-2.7) L Prothrombin Time 10.2 SEC (9.30-11.50) Prothromb Time International Ratio 1.0 (0.9-1.1) Activated Partial Thromboplast Time 31 SEC (23-33) Pro-B-Type Natriuretic Peptide 87 pg/mL (0-125) Microbiology Date/Time Source Procedure Growth Status 11/03/17 15:45 Urine,Clean Catch Urine Culture - Preliminary NO GROWTH Resulted 11/03/17 20:00 Shoulder Right Gram Stain - Final Resulted 11/03/17 20:00 Shoulder Right Wound Culture Pending Resulted Height (Feet): 5 Height (Inches): 5.00 Weight (Pounds): 255 Medications Current Medications Medications (Trade) Dose Ordered Sig/Ulke Route PRN Reason Start Time Stop Time Status Last Admin Dose Admin Acetaminophen (Tylenol) 650 mg Q4H PRN ORAL T>100.5 11/03/17 18:45 12/03/17 18:44 11/04/17 00:15 Albuterol/ Ipratropium (Albuterol/ Ipratropium) 3 ml Q4H PRN HHN Shortness of Breath 11/03/17 18:45 11/08/17 18:44 Atenolol (Tenormin) 25 mg DAILY ORAL 11/04/17 09:00 12/04/17 08:59 11/04/17 08:57 Atorvastatin Calcium (Lipitor) 40 mg BEDTIME ORAL 11/03/17 21:00 12/03/17 20:59 11/03/17 21:28 Cefepime HCl 2 gm/ Dextrose 55 ml @ 110 mls/hr Q12HR@0800,2000 IV 11/03/17 20:00 11/10/17 19:59 11/04/17 08:56 Dextrose (Dextrose 50%) STAT PRN IV Hypoglycemia 11/03/17 18:45 12/03/17 18:44 Guaifenesin/ Dextromethorphan (Robitussin DM Syrup) 10 ml Q6H PRN ORAL For Cough 11/04/17 13:00 12/04/17 12:59 Morphine Sulfate (Morphine Sulfate) 2 mg Q4H PRN IVP Moderate Pain (Pain Scale 4-6) 11/03/17 18:45 11/10/17 18:44 11/04/17 14:07 Nitroglycerin (Ntg) 0.4 mg Q5MIN X 3 DOSES PRN SL Prn Chest Pain 11/03/17 18:45 12/03/17 18:44 Ondansetron HCl (Zofran) 4 mg Q6H PRN IVP Nausea & Vomiting 11/03/17 18:45 12/03/17 18:44 Polyethylene Glycol (Miralax) 17 gm DAILYPRN PRN ORAL Constipation 11/03/17 18:45 12/03/17 18:44 Temazepam (Restoril) 15 mg HSPRN PRN ORAL Insomnia 11/03/17 21:00 11/10/17 20:59 Vancomycin HCl (Vanco rx to dose) 1 ea DAILY PRN MISC . 11/03/17 18:45 12/03/17 18:44 Vancomycin HCl/ Dextrose 250 ml @ 166.667 mls/hr Q12HR IVPB 11/04/17 09:00 11/09/17 08:59 11/04/17 08:57 Assessment/Plan Problem List: (1) Shoulder abscess Assessment & Plan: 57F with superficial right shoulder abscess. CT reviewed and no fascia, muscle or bone involvement. large subcutaneous area with cellulitis. no definitive abscess seen on CT but on exam there is area of opening with purulent drainage. Recommend I&D with washout. consent obtained will proceed with procedure at bedside cont abx packing and dressings changes TID after procedure. ICD Codes: L02.419 - Cutaneous abscess of limb, unspecified SNOMED: [id number] Status: stable Brian Mcmahon Nov 04, 2017 14:32
[2017-11-04] MEDS ORDERED: Norco 5mg/325mg tab ORAL PRN (14:45)
[2017-11-04] MEDS ORDERED: Morphine Sulfate 2mg/ml Inj IVP PRN (15:00)
--- NOTE | 2017-11-04 15:13 | Consultation ---
Consult Note Consult Note dic [id number] KALEIGH ORTIZ M.D. Nov 04, 2017 15:13
[2017-11-04 16:00] VITALS: BP 101/54
[2017-11-04] MEDS: Docusate 100mg cap ORAL SCH (17:28)
[2017-11-04 20:00] VITALS: BP 123/54
--- NOTE | 2017-11-04 20:27 | History & Physical ---
History and Physical History & Physicial Andrea Herrera MD Nov 04, 2017 20:27
[2017-11-04] MEDS: Atorvastatin 20mg tab ORAL SCH (21:22)
[2017-11-04] MEDS: Heparin 5000 units/ml inj SUBQ SCH (21:34)
--- NOTE | 2017-11-04 22:30 | Operative Note - Dictated ---
DATE OF OPERATION: 11/04/2017 PREOPERATIVE DIAGNOSIS: Right shoulder abscess. POSTOPERATIVE DIAGNOSIS: Right shoulder abscess. OPERATION PERFORMED: Incision and drainage of right shoulder abscess. ATTENDING SURGEON: Brian Mcmahon M.D. COMPOSITE BOND WORKER: None. ANESTHESIOLOGIST: None. ANESTHESIA: Local 1% lidocaine with epinephrine. SPECIMENS: Cultures taken. COMPLICATIONS: None. CONDITION: Stable. FLUIDS: None. ESTIMATED BLOOD LOSS: Minimal. DRAINS: None. DRESSINGS: Packing and dressings applied. WOUND CLASSIFICATION: Class III. ANTIBIOTICS: The patient on scheduled IV antibiotics for active infection. INDICATIONS FOR PROCEDURE: This is a 57-year-old female, who approximately 2 to 3 weeks ago noted a small lump on her right shoulder, which she attempted to evacuate with manual pressure. Following this, it slowly began to enlarge in size until approximately a few days ago when it became significantly tender, larger and uncomfortable. The patient went to see her primary physician who was able to inject a needle and make a small kelby in order to drain the abscess. Unfortunately, it was not completely evacuated and the patient's shoulder continued to become more painful with erythema, drainage and discomfort and therefore she came to the emergency department for further evaluation. CT confirmed a large area of cellulitis in the right subcutaneous tissue, but nothing in the deep fascia, tendon, muscles, or bone joints. Surgery was called to evaluate, at which time given the active purulent drainage, incision and drainage of wound with washout was indicated. Risks, benefits, and alternatives of this were discussed with the patient in detail prior. The patient consented to surgery, which was to be performed today at the bedside. OPERATIVE NOTE: The patient was made comfortable at the bedside. The right shoulder was prepped and draped in the standard surgical fashion. A 1% lidocaine with epinephrine was infiltrated in the proposed skin incision. The prior kelby incision site was used to be extended for a larger more appropriate incision. Once the desired and local anesthetic was achieved, a fresh #11 was scalpel used to enlarge the prior incision and drainage incision and make it into a cruciate incision. Sterile surgical forceps were then used to identify pockets of tracking including a small pocket that was noted tracking medially. Once all area of purulent fluid was evacuated, the wound was irrigated with copious amounts of sterile normal saline. Following this, packing and dressings were applied. Cultures were sent. The patient tolerated the procedure well. Plan for t.i.d. wet-to-dry dressing changes until wound heals. Continue intravenous antibiotics. Brian Mcmahon M.D. DR: MAUREEN JOB#: [id number] CC:
--- NOTE | 2017-11-04 22:30 | Consultation ---
DATE OF CONSULTATION: 11/04/2017 INFECTIOUS DISEASES CONSULTATION CONSULTING PHYSICIAN: Tal Sahu M.D. REFERRING PHYSICIAN: Andrea Herrera M.D. REASON FOR CONSULTATION: Evaluation of the patient for right shoulder abscess. HISTORY OF PRESENT ILLNESS: The patient is a 57-year-old female with multiple medical problems as listed above, who developed a pimple in the area. The patient has squeezed the area and subsequent to that developed enlargement of the lesion with increasing in pain and warmness. The patient was admitted with impression of abscess over the right shoulder. She just underwent an incision and drainage, and Infectious Disease consultation has been requested for further evaluation of the patient's antibiotic management. PAST MEDICAL HISTORY: 1. Hypertension. 2. Hysterectomy. MEDICATIONS: IV vancomycin and cefepime. ALLERGIES: No known drug allergies. SOCIAL HISTORY: The patient lives at home. No history of alcohol or drug abuse. FAMILY HISTORY: Not contributing. REVIEW OF SYSTEMS: HEENT: No recent change in vision or hearing. PULMONARY: No cough or shortness of breath. CARDIOVASCULAR: No chest pain or palpitations. GASTROINTESTINAL/ABDOMEN: No nausea or vomiting. GENITOURINARY: No dysuria. MUSCULOSKELETAL: As mentioned above. SKIN: As mentioned above. PHYSICAL EXAMINATION: VITAL SIGNS: Temperature 99.6, T-max 101.9, pulse 86, and respiratory rate 18. HEENT: No pale conjunctivae. No icterus. NECK: No lymphadenopathy. CHEST: Clear. HEART: S1 and S2. ABDOMEN: Soft. EXTREMITIES: The patient had a lesion on her right shoulder and underwent incision and drainage. NEUROLOGIC: Awake and alert. LABORATORY AND DIAGNOSTIC DATA: White blood cells 14 at time of admission, today is 9.5; hemoglobin 10.9; and platelets 241. UA unremarkable. BUN 12 and creatinine 1.2. ALT, AST and alkaline phosphatase are unremarkable. CT of the shoulder showed evidence of soft tissue cellulitis. No bony lesion. ASSESSMENT: 1. The patient is a 57-year-old female with an abscess over the right shoulder (soft tissue), without involvement of the musculoskeletal structures, status post incision and drainage most likely due to Staphylococcus aureus and gram positives. 2. Status post leukocytosis. 3. Fever. PLAN: 1. We will continue the patient on IV vancomycin and discontinue cefepime. 2. Monitor CBC. 3. Monitor BMP. 4. Monitor blood culture and wound culture. 5. Based on the patient's clinical course and laboratories, we will do further recommendation. Thank you, Dr. Arredondo, for allowing me to participate in the care of this patient. I will follow the patient with you during this hospitalization. Tal Sahu M.D. DR: CONOR JOB#: [id number] CC:
[2017-11-05] VITALS: BP 108/65
--- NOTE | 2017-11-05 01:32 | History and Physical Report ---
DATE OF ADMISSION: 11/03/2017 CHIEF COMPLAINT: Right shoulder abscess. HISTORY OF PRESENT ILLNESS: This is a 57-year-old very delightful female with past medical history significant for hypertension, dyslipidemia, and history of hysterectomy due to the fibroid uterus in 2010, who was presented to the hospital complaining about right shoulder pain and abscess. The patient has been having these symptoms started initially with a pimple over a week ago and they got progressively worsening. She went to see her primary doctor about 4 days ago and subsequently was started on oral antibiotic with Bactrim as well as Keflex. The patient's symptoms did not improve and had become progressively worsening and subsequently she decided to come to the hospital. She stated that she has been having fever, chills, warm and tender to touch. The patient had small I and D done in the doctor's office, however, the infection was deep enough that it was not able to extract all the necrotic tissues and possibly infection. Shortly after initial evaluation in the emergency, the patient was admitted to the hospital with right shoulder abscess as well as mild elevation of troponin. PAST MEDICAL HISTORY AND PAST SURGICAL HISTORY: As above. History of hypertension, dyslipidemia, morbid obesity, , and hysterectomy secondary to fibroid uterus in 2010. MEDICATIONS: Medications at home significant for aspirin, atenolol, atorvastatin, calcium carbonate, Keflex, vitamin D, hydrochlorothiazide, ibuprofen, and Bactrim. ALLERGIES: No known drug allergies. SOCIAL HISTORY: No smoking. Socially drinks. No substance use. 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 FAMILY HISTORY: The patient is adopted. She does not know anything about her actual family. REVIEW OF SYSTEMS: Mostly as above. Denies any dysuria, frequency, hematuria, or hematochezia. Complained of fever and chills. Denies any hemoptysis or hematochezia. Denies any bright red blood per rectum. Denies any loss of consciousness. Denies any double vision. PHYSICAL EXAMINATION: VITAL SIGNS: On admission, temperature 99.1, pulse of 88, respirations 21, and blood pressure 126/62. GENERAL: The patient is awake, responsive, in no acute distress. HEAD AND NECK: Pupils reactive to light. Extraocular movements intact. Neck was supple. No JVD. LUNGS: Good air entry. No wheezing or rales. HEART: S1 and S2. Distant heart sounds. No murmur or gallops. ABDOMEN: Soft, nondistended, and nontender. Positive bowel sounds. Morbid obesity. EXTREMITIES: No cyanosis, clubbing, or edema. The patient has necrotic tissue over the right shoulder and abscess on the right shoulder with surrounding cellulitis with 1-cm area of opening with paucity of drainage with erythema and warm to touch. NEUROLOGIC: Cranial nerves II through XII are grossly normal. Motor strength is 5/5 in all extremities. LABORATORY AND DIAGNOSTIC DATA: On admission, WBC of 14, hemoglobin 12, hematocrit 38, and platelets 301,000. Sodium 133, potassium 3.4, chloride 97, bicarbonate 28, BUN 14, creatinine 1.4, and glucose 92. AST of 28 and ALT of 42. Troponin is 0.115 and repeat one is 0.006. The patient's albumin is 3.6. PT of 10, INR 1.0, and PTT of 31. UA is +2 protein, +1 ketone, +3 occult blood, nitrite negative, 5-10 RBCs, and +2 leukocytes. The patient had an imaging study done. Chest x-ray, no acute cardiopulmonary disease. CT of the extremity shows evidence of the soft tissue cellulitis about the right shoulder. No drainage of abscess or evidence of the significant bony abnormality. No significant prominent axillary nodes. ASSESSMENT: 1. Right shoulder abscess. 2. Morbid obesity. 3. Dehydration. 4. Leukocytosis. 5. Hypertension. 6. Dyslipidemia. 7. Mildly elevated troponin. PLAN: 1. Admit the patient to [facility]. 2. We will follow up with serial cardiac enzymes. 3. Echocardiogram. 4. Discussed case with Dr. Arredondo of pulmonary/critical care, Dr. Tal Sahu of infectious diseases, and Dr. Brian Mcmahon from general surgery. 5. We will consider I and D of the abscess. 6. Wound care. 7. Broad-spectrum antibiotics with vancomycin and cefepime. 8. We will follow up with cultures and pain medication. 9. Code status is full code. 10. DVT prophylaxis, heparin subcutaneous. Andrea Herrera M.D. DR: FROY JOB#: [id number] CC:
[2017-11-05 04:00] VITALS: BP 123/57
[2017-11-05 05:20] LABS: BASOPHILS % (AUTO) 1.2 % (0.0-2.0); EOSINOPHILS % (AUTO) 1.1 % (0.0-3.0); LYMPHOCYTES % (AUTO) 25.9 % (20.0-45.0); MEAN CORPUSCULAR HEMOGLOBIN 28.5 PG (27.0-31.0); MEAN CORPUSCULAR HGB CONC 33.1 G/DL (32.0-36.0); MEAN CORPUSCULAR VOLUME 86 FL (80-99); MEAN PLATELET VOLUME 6.7 FL (6.5-10.1); NEUTROPHILS % (AUTO) 59.8 % (45.0-75.0); PLATELET COUNT 258 K/UL (150-450); RED BLOOD COUNT 4.42 M/UL (4.20-5.40); RED CELL DISTRIBUTION WIDTH 11.9 % (11.6-14.8); WHITE BLOOD COUNT 6.5 K/UL (4.8-10.8)
[2017-11-05 05:24] LABS: ANION GAP 7 mmol/L (5-15); CALCIUM 9.1 MG/DL (8.5-10.1); CARBON DIOXIDE 27 MMOL/L (21-32); CHLORIDE 103 MMOL/L (98-107); CREATININE 1.1 MG/DL (0.55-1.30); GLOMERULAR FILTRATION RATE > 60 mL/min (>60); POTASSIUM 3.5 MMOL/L (3.5-5.1); SODIUM 137 MMOL/L (136-145)
[2017-11-05] MEDS: Heparin 5000 units/ml inj SUBQ SCH ×3 (06:17→21:50)
[2017-11-05 08:00] VITALS: BP 125/61
[2017-11-05] MEDS ORDERED: Aspirin EC 81mg tab ORAL SCH (09:00)
[2017-11-05] MEDS: Docusate 100mg cap ORAL SCH ×2 (09:21→17:28)
[2017-11-05] MEDS: Atenolol 25mg tab ORAL SCH (09:22)
[2017-11-05] MEDS: Vancomycin 1250mg/D5W 250ml IVPB SCH (09:28)
--- NOTE | 2017-11-05 11:02 | Pulmonology Progress Note ---
Assessment/Plan Assessment/Plan ASSESSMENT R shoulder abscess cellulitis shoulder s/p I&D R shoulder abscess at the bedside 11/04 mild elevation in troponin - 1 occasion -resolved leukocytosis -resolved HTN dehydration morbid obesity hyperlipidemia PLAN OF CARE [facility] serial troponin , second troponin negative cardio eval ECHO with pEF 70% and RVSP of 21 patient with no cardiac symptoms, likely was due o infectious process BP management with BB continue ASA statin O2 HHN prn CT R shoulder with Evidence of soft tissue cellulitis in the area of the right shoulder No drainable abscess or evidence of significant bony abnormality surgery follows s/p I&D R shoulder abscess at the bedside 11/04 abx , blood cx prel negative, urine cx negative, wound cx pending ID follows wound care pain management DVT prophylaxis Bowel regimen Venous Duplex BLE monitor renal parameters, avoid nephrotoxic, creat down to normal transfer to [facility] floor case discussed and evaluated by supervising physician Subjective Allergies: Coded Allergies: [place] (Verified Allergy, Unknown, 11/04/17) Subjective feeling better afebrile, no leukocytosis +cough , no SOB Objective Last 24 Hour Vital Signs Date Time Temp Pulse Resp B/P (MAP) Pulse Ox O2 Delivery O2 Flow Rate FiO2 11/05/17 10:26 77 20 99 Room Air 21 11/05/17 10:16 71 20 96 Room Air 21 11/05/17 10:16 71 20 Room Air 11/05/17 09:22 82 125/61 11/05/17 08:00 89 11/05/17 08:00 98.6 82 20 125/61 98 Room Air 11/05/17 04:00 85 11/05/17 04:00 99.0 75 20 123/57 99 Room Air 11/05/17 00:00 85 11/05/17 00:00 98.9 73 20 108/65 95 Room Air 11/04/17 21:19 100.4 11/04/17 20:00 92 11/04/17 20:00 101.0 85 20 123/54 96 Room Air 11/04/17 16:00 99.2 86 20 101/54 96 Room Air 11/04/17 16:00 85 11/04/17 12:33 83 11/04/17 12:00 99.0 83 21 130/69 96 Room Air Intake and Output 11/05/17 11/06/17 19:00 07:00 Intake Total 166.667 ml Balance 166.667 ml IV Total 166.667 ml Objective General Appearance: WD/WN A/A/O x 3 AA female HEENT: normocephalic, atraumatic, anicteric, mucous membranes moist, PERRL Respiratory/Chest: lungs clear, no respiratory distress, no accessory muscle use Cardiovascular: normal rate, regular rhythm - SR on tele Abdomen: soft, non tender, non distended Genitourinary: normal external genitalia Extremities: no edema, pedal pulses normal Skin: R shoulder site of I&D with small dressing C/D/I, no edema, no tenderness Neurologic/Psychiatric: no motor/sensory deficits, alert, oriented x 3, responsive Microbiology Date/Time Source Procedure Growth Status 11/03/17 16:15 Blood Blood Culture - Preliminary NO GROWTH AFTER 24 HOURS Resulted 11/03/17 16:00 Blood Blood Culture - Preliminary NO GROWTH AFTER 24 HOURS Resulted 11/03/17 15:45 Urine,Clean Catch Urine Culture - Final NO GROWTH AFTER 48 HOURS Complete 11/04/17 12:28 Arm Right Gram Stain - Final Resulted 11/04/17 12:28 Arm Right Wound Culture Pending Resulted 11/03/17 20:00 Shoulder Right Gram Stain - Final Resulted 11/03/17 20:00 Shoulder Right Wound Culture Pending Resulted Laboratory Tests 11/05/17 03:33: White Blood Count 6.5, Red Blood Count 4.42, Hemoglobin 12.6, Hematocrit 38.1, Mean Corpuscular Volume 86, Mean Corpuscular Hemoglobin 28.5, Mean Corpuscular Hemoglobin Concent 33.1, Red Cell Distribution Width 11.9, Platelet Count 258, Mean Platelet Volume 6.7, Neutrophils (%) (Auto) 59.8, Lymphocytes (%) (Auto) 25.9, Monocytes (%) (Auto) 12.0H, Eosinophils (%) (Auto) 1.1, Basophils (%) ( Auto) 1.2, Sodium Level 137, Potassium Level 3.5, Chloride Level 103, Carbon Dioxide Level 27, Anion Gap 7, Blood Urea Nitrogen 10, Creatinine 1.1, Estimat Glomerular Filtration Rate > 60, Glucose Level 109H, Calcium Level 9.1 11/05/17 08:30: Vancomycin Level Trough 10.2 Current Medications Medications (Trade) Dose Ordered Sig/Luke Route PRN Reason Start Time Stop Time Status Last Admin Dose Admin Acetaminophen (Tylenol) 650 mg Q4H PRN ORAL T>100.5 11/03/17 18:45 12/03/17 18:44 11/04/17 20:20 Acetaminophen/ Hydrocodone Bitart ([place] 5/325) 1 tab Q4H PRN ORAL Moderate Pain (Pain Scale 4-6) 11/04/17 14:45 11/11/17 14:44 Albuterol/ Ipratropium (Albuterol/ Ipratropium) 3 ml Q4H PRN HHN Shortness of Breath 11/03/17 18:45 11/08/17 18:44 11/05/17 10:16 Aspirin (Ecotrin) 81 mg DAILY ORAL 11/05/17 09:00 12/05/17 08:59 11/05/17 09:21 Atenolol (Tenormin) 25 mg DAILY ORAL 11/04/17 09:00 12/04/17 08:59 11/05/17 09:22 Atorvastatin Calcium (Lipitor) 40 mg BEDTIME ORAL 11/03/17 21:00 12/03/17 20:59 11/04/17 21:22 Dextrose (Dextrose 50%) STAT PRN IV Hypoglycemia 11/03/17 18:45 12/03/17 18:44 Docusate Sodium (Colace) 100 mg TWICE A DAY ORAL 11/04/17 18:00 12/04/17 17:59 11/05/17 09:21 Guaifenesin/ Dextromethorphan (Robitussin DM Syrup) 10 ml Q6H PRN ORAL For Cough 11/04/17 13:00 12/04/17 12:59 Heparin Sodium (Porcine) (Heparin 5000 units/ml) 5,000 units EVERY 8 HOURS SUBQ 11/04/17 22:00 12/04/17 21:59 11/05/17 06:17 Morphine Sulfate (Morphine Sulfate) 2 mg Q4H PRN IVP Severe Pain (Pain Scale 7-10) 11/04/17 15:00 11/10/17 18:44 Nitroglycerin (Ntg) 0.4 mg Q5MIN X 3 DOSES PRN SL Prn Chest Pain 11/03/17 18:45 12/03/17 18:44 Ondansetron HCl (Zofran) 4 mg Q6H PRN IVP Nausea & Vomiting 11/03/17 18:45 12/03/17 18:44 Polyethylene Glycol (Miralax) 17 gm DAILYPRN PRN ORAL Constipation 11/03/17 18:45 12/03/17 18:44 Temazepam (Restoril) 15 mg HSPRN PRN ORAL Insomnia 11/03/17 21:00 11/10/17 20:59 Vancomycin HCl (Vanco rx to dose) 1 ea DAILY PRN MISC . 11/03/17 18:45 12/03/17 18:44 Vancomycin HCl/ Dextrose 250 ml @ 166.667 mls/hr Q12HR IVPB 11/04/17 09:00 11/09/17 08:59 11/05/17 09:28 Isaiah ([place])Krystal NP Nov 05, 2017 11:02
[2017-11-05 12:00] VITALS: BP 130/68
[2017-11-05] MEDS ORDERED: Guaifenesin/DM 10ml syrup ORAL PRN (13:00)
[2017-11-05] MEDS ORDERED: Nitroglycerin Subl 0.4mg tab SL PRN (13:00)
--- NOTE | 2017-11-05 13:29 | General Surgery Progress Note ---
General Surgery-Progress Note Subjective Procedure Performed incision and drainage of right shoulder abscess Symptoms: improved Additional Comments doing very well. pain improved. no n/v/f/c. comfortable. dressings changed. no drainage. Objective Last 24 Hour Vital Signs Date Time Temp Pulse Resp B/P (MAP) Pulse Ox O2 Delivery O2 Flow Rate FiO2 11/05/17 12:00 98.0 75 21 130/68 98 Room Air 11/05/17 10:26 77 20 99 Room Air 21 11/05/17 10:16 71 20 96 Room Air 21 11/05/17 10:16 71 20 Room Air 11/05/17 09:22 82 125/61 11/05/17 08:00 89 11/05/17 08:00 98.6 82 20 125/61 98 Room Air 11/05/17 04:00 85 11/05/17 04:00 99.0 75 20 123/57 99 Room Air 11/05/17 00:00 85 11/05/17 00:00 98.9 73 20 108/65 95 Room Air 11/04/17 21:19 100.4 11/04/17 20:00 92 11/04/17 20:00 101.0 85 20 123/54 96 Room Air 11/04/17 16:00 99.2 86 20 101/54 96 Room Air 11/04/17 16:00 85 I&O Intake and Output 11/05/17 11/06/17 19:00 07:00 Intake Total 166.667 ml Balance 166.667 ml IV Total 166.667 ml Dressing: dry Wound: clean Drains: none Cardiovascular: RSR Respiratory: clear Abdomen: soft, non-tender Extremities: no tenderness Laboratory Tests Test 11/05/17 03:33 11/05/17 08:30 White Blood Count 6.5 K/UL (4.8-10.8) Red Blood Count 4.42 M/UL (4.20-5.40) Hemoglobin 12.6 G/DL (12.0-16.0) Hematocrit 38.1 % (37.0-47.0) Mean Corpuscular Volume 86 FL (80-99) Mean Corpuscular Hemoglobin 28.5 PG (27.0-31.0) Mean Corpuscular Hemoglobin Concent 33.1 G/DL (32.0-36.0) Red Cell Distribution Width 11.9 % (11.6-14.8) Platelet Count 258 K/UL (150-450) Mean Platelet Volume 6.7 FL (6.5-10.1) Neutrophils (%) (Auto) 59.8 % (45.0-75.0) Lymphocytes (%) (Auto) 25.9 % (20.0-45.0) Monocytes (%) (Auto) 12.0 % (1.0-10.0) H Eosinophils (%) (Auto) 1.1 % (0.0-3.0) Basophils (%) (Auto) 1.2 % (0.0-2.0) Sodium Level 137 MMOL/L (136-145) Potassium Level 3.5 MMOL/L (3.5-5.1) Chloride Level 103 MMOL/L (98-107) Carbon Dioxide Level 27 MMOL/L (21-32) Anion Gap 7 mmol/L (5-15) Blood Urea Nitrogen 10 mg/dL (7-18) Creatinine 1.1 MG/DL (0.55-1.30) Estimat Glomerular Filtration Rate > 60 mL/min (>60) Glucose Level 109 MG/DL (74-106) H Calcium Level 9.1 MG/DL (8.5-10.1) Vancomycin Level Trough 10.2 ug/mL (5.0-12.0) Additional Comments right shoulder wound improved. mild erythema. no drainage. Plan Problems: (1) Shoulder abscess Assessment & Plan: 57F with superficial right shoulder abscess s/p I&D. doing well. improved continue with wound care. wet to dry TID for a few more days then can do just dressings and no packing okay to d/c from surgical standpoint follow up with me in 1-2 weeks. for wound check Brian Mcmahon Nov 05, 2017 13:29
[2017-11-05] MEDS ORDERED: Norco 5mg/325mg tab ORAL PRN (14:00)
[2017-11-05] MEDS ORDERED: Albuterol/Ipratropium 3ml neb HHN PRN (14:00)
[2017-11-05] MEDS ORDERED: Morphine Sulfate 2mg/ml Inj IVP PRN (14:00)
--- NOTE | 2017-11-05 14:00 | Infectious Diseases Prog Note ---
Assessment/Plan Assessment/Plan ASSESSMENT: The patient is a 57-year-old female with Abscess ( over the right shoulder (soft tissue), without involvement of the musculoskeletal Wnd : Staph A Status post leukocytosis. Fever, improving HTN Hysterectomy PLAN: continue the patient on IV vancomycin d# 2 11/04 SP cefepime d# 1 Monitor CB Monitor BMP Monitor blood culture and wound culture Subjective Allergies: Coded Allergies: [place] (Verified Allergy, Unknown, 11/04/17) Subjective comfortable Objective Vital Signs Last 24 Hour Vital Signs Date Time Temp Pulse Resp B/P (MAP) Pulse Ox O2 Delivery O2 Flow Rate FiO2 11/05/17 12:00 98.0 75 21 130/68 98 Room Air 11/05/17 10:26 77 20 99 Room Air 21 11/05/17 10:16 71 20 96 Room Air 21 11/05/17 10:16 71 20 Room Air 11/05/17 09:22 82 125/61 11/05/17 08:00 89 11/05/17 08:00 98.6 82 20 125/61 98 Room Air 11/05/17 04:00 85 11/05/17 04:00 99.0 75 20 123/57 99 Room Air 11/05/17 00:00 85 11/05/17 00:00 98.9 73 20 108/65 95 Room Air 11/04/17 21:19 100.4 11/04/17 20:00 92 11/04/17 20:00 101.0 85 20 123/54 96 Room Air 11/04/17 16:00 99.2 86 20 101/54 96 Room Air 11/04/17 16:00 85 Height (Feet): 5 Height (Inches): 5.00 Weight (Pounds): 255 HEENT: anicteric Respiratory/Chest: normal breath sounds Cardiovascular: regular rhythm Abdomen: no mass Microbiology Date/Time Source Procedure Growth Status 11/03/17 16:15 Blood Blood Culture - Preliminary NO GROWTH AFTER 24 HOURS Resulted 11/03/17 16:00 Blood Blood Culture - Preliminary NO GROWTH AFTER 24 HOURS Resulted 11/03/17 15:45 Urine,Clean Catch Urine Culture - Final NO GROWTH AFTER 48 HOURS Complete 11/04/17 12:28 Arm Right Gram Stain - Final Resulted 11/04/17 12:28 Arm Right Wound Culture - Preliminary Resulted 11/03/17 20:00 Shoulder Right Gram Stain - Final Resulted 11/03/17 20:00 Wound Culture - Preliminary Staphylococcus Aureus Resulted Laboratory Tests Test 11/05/17 03:33 11/05/17 08:30 White Blood Count 6.5 K/UL (4.8-10.8) Red Blood Count 4.42 M/UL (4.20-5.40) Hemoglobin 12.6 G/DL (12.0-16.0) Hematocrit 38.1 % (37.0-47.0) Mean Corpuscular Volume 86 FL (80-99) Mean Corpuscular Hemoglobin 28.5 PG (27.0-31.0) Mean Corpuscular Hemoglobin Concent 33.1 G/DL (32.0-36.0) Red Cell Distribution Width 11.9 % (11.6-14.8) Platelet Count 258 K/UL (150-450) Mean Platelet Volume 6.7 FL (6.5-10.1) Neutrophils (%) (Auto) 59.8 % (45.0-75.0) Lymphocytes (%) (Auto) 25.9 % (20.0-45.0) Monocytes (%) (Auto) 12.0 % (1.0-10.0) H Eosinophils (%) (Auto) 1.1 % (0.0-3.0) Basophils (%) (Auto) 1.2 % (0.0-2.0) Sodium Level 137 MMOL/L (136-145) Potassium Level 3.5 MMOL/L (3.5-5.1) Chloride Level 103 MMOL/L (98-107) Carbon Dioxide Level 27 MMOL/L (21-32) Anion Gap 7 mmol/L (5-15) Blood Urea Nitrogen 10 mg/dL (7-18) Creatinine 1.1 MG/DL (0.55-1.30) Estimat Glomerular Filtration Rate > 60 mL/min (>60) Glucose Level 109 MG/DL (74-106) H Calcium Level 9.1 MG/DL (8.5-10.1) Vancomycin Level Trough 10.2 ug/mL (5.0-12.0) Current Medications Medications (Trade) Dose Ordered Sig/Luke Route PRN Reason Start Time Stop Time Status Last Admin Dose Admin Acetaminophen (Tylenol) 650 mg Q4H PRN ORAL T>100.5 11/05/17 14:00 12/03/17 13:59 Acetaminophen/ Hydrocodone Bitart ([place] 5/325) 1 tab Q4H PRN ORAL Moderate Pain (Pain Scale 4-6) 11/05/17 14:00 11/11/17 13:59 Albuterol/ Ipratropium (Albuterol/ Ipratropium) 3 ml Q4H PRN HHN Shortness of Breath 11/05/17 14:00 11/08/17 13:59 Aspirin (Ecotrin) 81 mg DAILY ORAL 11/06/17 09:00 12/05/17 08:59 Atenolol (Tenormin) 25 mg DAILY ORAL 11/06/17 09:00 12/04/17 08:59 Atorvastatin Calcium (Lipitor) 40 mg BEDTIME ORAL 11/05/17 21:00 12/03/17 20:59 Dextrose (Dextrose 50%) STAT PRN IV Hypoglycemia 11/05/17 13:00 12/03/17 12:59 Docusate Sodium (Colace) 100 mg TWICE A DAY ORAL 11/05/17 18:00 12/04/17 17:59 Guaifenesin/ Dextromethorphan (Robitussin DM Syrup) 10 ml Q6H PRN ORAL For Cough 11/05/17 13:00 12/04/17 12:59 Heparin Sodium (Porcine) (Heparin 5000 units/ml) 5,000 units EVERY 8 HOURS SUBQ 11/05/17 14:00 12/04/17 21:59 Morphine Sulfate (Morphine Sulfate) 2 mg Q4H PRN IVP Severe Pain (Pain Scale 7-10) 11/05/17 14:00 11/10/17 13:59 Nitroglycerin (Ntg) 0.4 mg Q5MIN X 3 DOSES PRN SL Prn Chest Pain 11/05/17 13:00 12/03/17 12:59 Ondansetron HCl (Zofran) 4 mg Q6H PRN IVP Nausea & Vomiting 11/05/17 13:00 12/03/17 12:59 Polyethylene Glycol (Miralax) 17 gm DAILYPRN PRN ORAL Constipation 11/05/17 18:00 12/03/17 17:59 Temazepam (Restoril) 15 mg HSPRN PRN ORAL Insomnia 11/05/17 21:00 11/10/17 20:59 Vancomycin HCl (Vanco rx to dose) 1 ea DAILY PRN MISC . 11/05/17 13:00 12/05/17 12:59 Vancomycin HCl/ Dextrose 250 ml @ 166.667 mls/hr Q12HR IVPB 11/05/17 21:00 11/09/17 08:59 KALEIGH ORTIZ M.D. Nov 05, 2017 13:59
--- NOTE | 2017-11-05 15:22 | Internal Med Progress Note ---
Subjective Date of Service: Nov 05, 2017 Physician Name Nelson Ricci Attending Physician Andrea Herrera MD Current Medications Medications (Trade) Dose Ordered Sig/Luke Route PRN Reason Start Time Stop Time Status Last Admin Dose Admin Acetaminophen (Tylenol) 650 mg Q4H PRN ORAL T>100.5 11/05/17 14:00 12/03/17 13:59 Acetaminophen/ Hydrocodone Bitart ([place] 5/325) 1 tab Q4H PRN ORAL Moderate Pain (Pain Scale 4-6) 11/05/17 14:00 11/11/17 13:59 Albuterol/ Ipratropium (Albuterol/ Ipratropium) 3 ml Q4H PRN HHN Shortness of Breath 11/05/17 14:00 11/08/17 13:59 Aspirin (Ecotrin) 81 mg DAILY ORAL 11/06/17 09:00 12/05/17 08:59 Atenolol (Tenormin) 25 mg DAILY ORAL 11/06/17 09:00 12/04/17 08:59 Atorvastatin Calcium (Lipitor) 40 mg BEDTIME ORAL 11/05/17 21:00 12/03/17 20:59 Dextrose (Dextrose 50%) STAT PRN IV Hypoglycemia 11/05/17 13:00 12/03/17 12:59 Docusate Sodium (Colace) 100 mg TWICE A DAY ORAL 11/05/17 18:00 12/04/17 17:59 Guaifenesin/ Dextromethorphan (Robitussin DM Syrup) 10 ml Q6H PRN ORAL For Cough 11/05/17 13:00 12/04/17 12:59 11/05/17 14:35 Heparin Sodium (Porcine) (Heparin 5000 units/ml) 5,000 units EVERY 8 HOURS SUBQ 11/05/17 14:00 12/04/17 21:59 11/05/17 14:37 Morphine Sulfate (Morphine Sulfate) 2 mg Q4H PRN IVP Severe Pain (Pain Scale 7-10) 11/05/17 14:00 11/10/17 13:59 Nitroglycerin (Ntg) 0.4 mg Q5MIN X 3 DOSES PRN SL Prn Chest Pain 11/05/17 13:00 12/03/17 12:59 Ondansetron HCl (Zofran) 4 mg Q6H PRN IVP Nausea & Vomiting 11/05/17 13:00 12/03/17 12:59 Polyethylene Glycol (Miralax) 17 gm DAILYPRN PRN ORAL Constipation 11/05/17 18:00 12/03/17 17:59 Temazepam (Restoril) 15 mg HSPRN PRN ORAL Insomnia 11/05/17 21:00 11/10/17 20:59 Vancomycin HCl (Vanco rx to dose) 1 ea DAILY PRN MISC . 11/05/17 13:00 12/05/17 12:59 Vancomycin HCl/ Dextrose 250 ml @ 166.667 mls/hr Q12HR IVPB 11/05/17 21:00 11/09/17 08:59 Allergies: Coded Allergies: [place] (Verified Allergy, Unknown, 11/04/17) ROS Limited/Unobtainable: No Constitutional: Reports: no symptoms HEENT: Reports: no symptoms Cardiovascular: Reports: no symptoms Respiratory: Reports: no symptoms Gastrointestinal/Abdominal: Reports: no symptoms Genitourinary: Reports: no symptoms Neurologic/Psychiatric: Reports: no symptoms Subjective 57 YO F admitted with right shoulder pain/abscess. Cover for Int Med-Dr Herrera. Objective Last Vital Signs Date Time Temp Pulse Resp B/P (MAP) Pulse Ox O2 Delivery O2 Flow Rate FiO2 11/05/17 12:00 98.0 75 21 130/68 98 Room Air 11/05/17 10:26 21 General Appearance: no apparent distress, alert, obese EENT: PERRL/EOMI, normal ENT inspection, TMs normal Neck: non-tender, normal alignment, supple, normal inspection Cardiovascular: normal peripheral pulses, normal rate, regular rhythm, no gallop/murmur, no JVD Respiratory/Chest: chest wall non-tender, lungs clear, normal breath sounds, no respiratory distress, no accessory muscle use Abdomen: normal bowel sounds, non tender, soft, no organomegaly, no mass Extremities: normal range of motion 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0) Monocytes (%) (Auto) 12.0 % (1.0-10.0) H Eosinophils (%) (Auto) 1.1 % (0.0-3.0) Basophils (%) (Auto) 1.2 % (0.0-2.0) Sodium Level 137 MMOL/L (136-145) Potassium Level 3.5 MMOL/L (3.5-5.1) Chloride Level 103 MMOL/L (98-107) Carbon Dioxide Level 27 MMOL/L (21-32) Anion Gap 7 mmol/L (5-15) Blood Urea Nitrogen 10 mg/dL (7-18) Creatinine 1.1 MG/DL (0.55-1.30) Estimat Glomerular Filtration Rate > 60 mL/min (>60) Glucose Level 109 MG/DL (74-106) H Calcium Level 9.1 MG/DL (8.5-10.1) Vancomycin Level Trough 10.2 ug/mL (5.0-12.0) Microbiology Date/Time Source Procedure Growth Status 11/03/17 16:15 Blood Blood Culture - Preliminary NO GROWTH AFTER 24 HOURS Resulted 11/03/17 16:00 Blood Blood Culture - Preliminary NO GROWTH AFTER 24 HOURS Resulted 11/03/17 15:45 Urine,Clean Catch Urine Culture - Final NO GROWTH AFTER 48 HOURS Complete 11/04/17 12:28 Arm Right Gram Stain - Final Resulted 11/04/17 12:28 Arm Right Wound Culture - Preliminary Resulted 11/03/17 20:00 Shoulder Right Gram Stain - Final Resulted 11/03/17 20:00 Wound Culture - Preliminary Staphylococcus Aureus Resulted Intake and Output 12/16/17 12/17/17 19:00 07:00 Intake Total 166.667 ml Balance 166.667 ml IV Total 166.667 ml Assessment/Plan Assessment/Plan 1. Right shoulder abscess. 2. Morbid obesity. 3. Dehydration. 4. Leukocytosis. 5. Hypertension. 6. Dyslipidemia. 7. Mildly elevated troponin. PLAN: 1. Admit the patient to [facility]. 2. We will follow up with serial cardiac enzymes. 3. Echocardiogram. 4. Discussed case with Dr. Arredondo of pulmonary/critical care, Dr. Tal Sahu of infectious diseases, and Dr. Brian Mcmahon from general surgery. 5. We will consider I and D of the abscess. 6. Wound care. 7. Broad-spectrum antibiotics with vancomycin and cefepime. 8. We will follow up with cultures and pain medication. 9. Code status is full code. 10. DVT prophylaxis, heparin subcutaneous. NELSON RICCI Nov 05, 2017 15:22
[2017-11-05] MEDS ORDERED: NS 500ML ONE (16:19)
[2017-11-05] MEDS ORDERED: Tubing IV Secondary IV ONE (16:19)
[2017-11-05 16:21] VITALS: BP 131/68
[2017-11-05] MEDS ORDERED: Miralax 17gm pkt ORAL PRN (18:00)
[2017-11-05 20:00] VITALS: BP 126/71
[2017-11-05] MEDS: Vancomycin 1250mg/D5W 250ml 250 ML IVPB SCH (21:45)
[2017-11-06] VITALS: BP 109/63
[2017-11-06 04:00] VITALS: BP 118/64
[2017-11-06] MEDS: Heparin 5000 units/ml inj SUBQ SCH ×3 (05:54→21:08)
[2017-11-06 07:40] LABS: BASOPHILS % (AUTO) 1.3 % (0.0-2.0); EOSINOPHILS % (AUTO) 1.8 % (0.0-3.0); LYMPHOCYTES % (AUTO) 25.5 % (20.0-45.0); MEAN CORPUSCULAR HEMOGLOBIN 28.4 PG (27.0-31.0); MEAN CORPUSCULAR HGB CONC 33.3 G/DL (32.0-36.0); MEAN CORPUSCULAR VOLUME 85 FL (80-99); MEAN PLATELET VOLUME 7.2 FL (6.5-10.1); MONOCYTES % (AUTO) 15.5 % (1.0-10.0); NEUTROPHILS % (AUTO) 55.9 % (45.0-75.0); PLATELET COUNT 268 K/UL (150-450); RED BLOOD COUNT 4.14 M/UL (4.20-5.40); WHITE BLOOD COUNT 6.2 K/UL (4.8-10.8)
[2017-11-06 07:49] LABS: ANION GAP 8 mmol/L (5-15); CALCIUM 8.8 MG/DL (8.5-10.1); CARBON DIOXIDE 26 MMOL/L (21-32); CHLORIDE 102 MMOL/L (98-107); CREATININE 0.9 MG/DL (0.55-1.30); GLOMERULAR FILTRATION RATE > 60 mL/min (>60); POTASSIUM 3.7 MMOL/L (3.5-5.1); SODIUM 136 MMOL/L (136-145)
[2017-11-06 08:35] VITALS: BP 118/59
[2017-11-06] MEDS: Aspirin EC 81mg tab ORAL SCH (08:39)
[2017-11-06] MEDS: Docusate 100mg cap ORAL SCH ×2 (08:39→18:51)
[2017-11-06] MEDS: Atenolol 25mg tab ORAL SCH (08:39)
[2017-11-06] MEDS: Vancomycin 1250mg/D5W 250ml 250 ML IVPB SCH ×2 (08:40→21:03)
--- NOTE | 2017-11-06 09:24 | Pulmonology Progress Note ---
Assessment/Plan Assessment/Plan ASSESSMENT R shoulder abscess cellulitis R shoulder s/p I&D R shoulder abscess at the bedside 11/04 leukocytosis -resolved HTN mild elevation in troponin - on 1 occasion -resolved morbid obesity dehydration dyslipidemia PLAN OF CARE [facility] floor serial troponin , second troponin negative ECHO with pEF 70% and RVSP of 21 patient with no cardiac symptoms, single mild elevation in troponin likely was due to infectious process, resolved , no cardiac symptoms BP management with BB continue ASA statin O2 HHN prn CT R shoulder with Evidence of soft tissue cellulitisin the area of he right shoulder No drainable abscess or evidence of significant bony abnormality surgery follows s/p I&D R shoulder abscess at the bedside 11/04 abx , blood cx prel negative, urine cx negative, wound cx prel + Staph aureus ID follows wound care pain management DVT prophylaxis Bowel regimen Venous Duplex BLE creat down to normal case discussed and evaluated by supervising physician Subjective Allergies: Coded Allergies: [place] (Verified Allergy, Unknown, 11/04/17) Subjective afebrile, no leukocytosis area down the site of I&D painful and swollen Objective Last 24 Hour Vital Signs Date Time Temp Pulse Resp B/P (MAP) Pulse Ox O2 Delivery O2 Flow Rate FiO2 11/06/17 08:39 73 118/59 11/06/17 08:35 98.4 73 18 118/59 96 Room Air 11/06/17 07:31 83 18 Room Air 11/06/17 04:00 99.0 70 20 118/64 98 Room Air 11/06/17 01:48 74 18 Room Air 11/06/17 00:00 99.6 78 19 109/63 97 11/05/17 20:00 99.9 79 19 126/71 98 11/05/17 16:21 99.4 81 20 131/68 100 Room Air 11/05/17 12:00 98.0 75 21 130/68 98 Room Air 11/05/17 10:26 77 20 99 Room Air 21 11/05/17 10:16 71 20 96 Room Air 21 11/05/17 10:16 71 20 Room Air 11/05/17 09:22 82 125/61 Objective General Appearance: WD/WN A/A/O x 3 AA female HEENT: normocephalic, atraumatic, anicteric, mucous membranes moist, PERRL Respiratory/Chest: lungs clear, no respiratory distress, no accessory muscle use Cardiovascular: normal rate,S1S2, no murmurs Abdomen: soft, non tender, non distended Genitourinary: normal external genitalia Extremities: no edema, pedal pulses normal Skin: R shoulder site of I&D with small dressing C/D/I, area anterior and inferior to it TTP , edematous, Neurologic/Psychiatric: no motor/sensory deficits, alert, oriented x 3, responsive Microbiology Date/Time Source Procedure Growth Status 11/03/17 16:15 Blood Blood Culture - Preliminary NO GROWTH AFTER 48 HOURS Resulted 11/03/17 16:00 Blood Blood Culture - Preliminary NO GROWTH AFTER 48 HOURS Resulted 11/03/17 15:45 Urine,Clean Catch Urine Culture - Final NO GROWTH AFTER 48 HOURS Complete 11/04/17 12:28 Arm Right Gram Stain - Final Resulted 11/04/17 12:28 Arm Right Wound Culture - Preliminary Resulted 11/03/17 20:00 Shoulder Right Gram Stain - Final Resulted 11/03/17 20:00 Wound Culture - Preliminary Staphylococcus Aureus Resulted Laboratory Tests 11/06/17 04:50: White Blood Count 6.2, Red Blood Count 4.14L, Hemoglobin 11.8L, Hematocrit 35.4L , Mean Corpuscular Volume 85, Mean Corpuscular Hemoglobin 28.4, Mean Corpuscular Hemoglobin Concent 33.3, Red Cell Distribution Width 12.0, Platelet Count 268, Mean Platelet Volume 7.2, Neutrophils (%) (Auto) 55.9, Lymphocytes (% ) (Auto) 25.5, Monocytes (%) (Auto) 15.5H, Eosinophils (%) (Auto) 1.8, Basophils (%) (Auto) 1.3, Sodium Level 136, Potassium Level 3.7, Chloride Level 102, Carbon Dioxide Level 26, Anion Gap 8, Blood Urea Nitrogen 9, Creatinine 0.9 , Estimat Glomerular Filtration Rate > 60, Glucose Level 102, Calcium Level 8.8 Current Medications Medications (Trade) Dose Ordered Sig/Luke Route PRN Reason Start Time Stop Time Status Last Admin Dose Admin Acetaminophen (Tylenol) 650 mg Q4H PRN ORAL T>100.5 11/05/17 14:00 12/03/17 13:59 Acetaminophen/ Hydrocodone Bitart ([place] 5/325) 1 tab Q4H PRN ORAL Moderate Pain (Pain Scale 4-6) 11/05/17 14:00 11/11/17 13:59 Albuterol/ Ipratropium (Albuterol/ Ipratropium) 3 ml Q4H PRN HHN Shortness of Breath 11/05/17 14:00 11/08/17 13:59 Aspirin (Ecotrin) 81 mg DAILY ORAL 11/06/17 09:00 12/05/17 08:59 11/06/17 08:39 Atenolol (Tenormin) 25 mg DAILY ORAL 11/06/17 09:00 12/04/17 08:59 11/06/17 08:39 Atorvastatin Calcium (Lipitor) 40 mg BEDTIME ORAL 11/05/17 21:00 12/03/17 20:59 11/05/17 21:46 Dextrose (Dextrose 50%) STAT PRN IV Hypoglycemia 11/05/17 13:00 12/03/17 12:59 Docusate Sodium (Colace) 100 mg TWICE A DAY ORAL 11/05/17 18:00 12/04/17 17:59 11/06/17 08:39 Guaifenesin/ Dextromethorphan (Robitussin DM Syrup) 10 ml Q6H PRN ORAL For Cough 11/05/17 13:00 12/04/17 12:59 11/05/17 14:35 Heparin Sodium (Porcine) (Heparin 5000 units/ml) 5,000 units EVERY 8 HOURS SUBQ 11/05/17 14:00 12/04/17 21:59 11/06/17 05:54 Morphine Sulfate (Morphine Sulfate) 2 mg Q4H PRN IVP Severe Pain (Pain Scale 7-10) 11/05/17 14:00 11/10/17 13:59 Nitroglycerin (Ntg) 0.4 mg Q5MIN X 3 DOSES PRN SL Prn Chest Pain 11/05/17 13:00 12/03/17 12:59 Ondansetron HCl (Zofran) 4 mg Q6H PRN IVP Nausea & Vomiting 11/05/17 13:00 12/03/17 12:59 Polyethylene Glycol (Miralax) 17 gm DAILYPRN PRN ORAL Constipation 11/05/17 18:00 12/03/17 17:59 Temazepam (Restoril) 15 mg HSPRN PRN ORAL Insomnia 11/05/17 21:00 11/10/17 20:59 Vancomycin HCl (Vanco rx to dose) 1 ea DAILY PRN MISC . 11/05/17 13:00 12/05/17 12:59 Vancomycin HCl/ Dextrose 250 ml @ 166.667 mls/hr Q12HR IVPB 11/05/17 21:00 11/09/17 08:59 11/06/17 08:40 Isaiah (Lisa)Krystal NP Nov 06, 2017 09:24
[2017-11-06 12:00] VITALS: BP 130/78
--- NOTE | 2017-11-06 13:19 | Cardiology Report ---
APPROVED REPORT EXAM: Two-dimensional and M-mode echocardiogram with Doppler and color Doppler. INDICATION Palpitations M-Mode DIMENSIONS IVSd1.1 (0.7-1.1cm)Left Atrium (MM)2.8 (1.6-4.0cm) LVDd4.5 (3.5-5.6cm)Aortic Root3.2 (2.0-3.7cm) PWd0.9 (0.7-1.1cm)Aortic Cusp Exc.1.6 (1.5-2.0cm) IVSs1.7 cm LVDs2.6 (2.5-4.0cm) PWs1.5 cm Normal left ventricular chamber size, systolic function and wall motion. Left ventricular ejection fraction estimated to be 70 %. No evidence of left ventricular hypertrophy. All other cardiac chamber size are within normal. Mild Focal aortic valve sclerosis with adequate cusp excursion. Mild Thickened mitral valve leaflets with normal excursion. Mild Mitral annulus and aortic root calcification. Pulmonic valve not well visualized. Normal tricuspid valve structure. IVC at normal size with physiologic collapse . A color flow and spectral Doppler study was performed and revealed: No aortic regurgitation. Trace mitral regurgitation. Normal left ventricular diastolic function . Trace tricuspid regurgitation. Tricuspid systolic velocities suggests peak right ventricular systolic pressure of 21 mmHg. No Pulmonic regurgitation present.
--- NOTE | 2017-11-06 14:45 | Cardiology Report ---
APPROVED REPORT EKG Measurement Heart [id number] Normal sinus rhythm Nonspecific T wave abnormality Abnormal ECG
--- NOTE | 2017-11-06 16:06 | General Surgery Progress Note ---
General Surgery-Progress Note Subjective Procedure Performed incision and drainage of right shoulder abscess Symptoms: improved, tolerating diet, passing flatus Additional Comments no acute events. doing well. slowly improving. still with some erythema and edema around right shoulder but slowly improving. no drainage. no area of fluctuance. Objective Last 24 Hour Vital Signs Date Time Temp Pulse Resp B/P (MAP) Pulse Ox O2 Delivery O2 Flow Rate FiO2 11/06/17 12:00 98.2 64 18 130/78 99 Room Air 11/06/17 08:39 73 118/59 11/06/17 08:35 98.4 73 18 118/59 96 Room Air 11/06/17 07:31 83 18 Room Air 11/06/17 04:00 99.0 70 20 118/64 98 Room Air 11/06/17 01:48 74 18 Room Air 11/06/17 00:00 99.6 78 19 109/63 97 11/05/17 20:00 99.9 79 19 126/71 98 11/05/17 16:21 99.4 81 20 131/68 100 Room Air Dressing: dry Wound: clean Drains: none Cardiovascular: RSR Respiratory: clear Abdomen: soft, non-tender, present bowel sounds Extremities: no tenderness, other - right shoulder I&D site c/d/i. packing and dressings intact. some cellulitis surrounding but slowly improving. no fluctuance or abscess Laboratory Tests Test 11/06/17 04:50 White Blood Count 6.2 K/UL (4.8-10.8) Red Blood Count 4.14 M/UL (4.20-5.40) L Hemoglobin 11.8 G/DL (12.0-16.0) L Hematocrit 35.4 % (37.0-47.0) L Mean Corpuscular Volume 85 FL (80-99) Mean Corpuscular Hemoglobin 28.4 PG (27.0-31.0) Mean Corpuscular Hemoglobin Concent 33.3 G/DL (32.0-36.0) Red Cell Distribution Width 12.0 % (11.6-14.8) Platelet Count 268 K/UL (150-450) Mean Platelet Volume 7.2 FL (6.5-10.1) Neutrophils (%) (Auto) 55.9 % (45.0-75.0) Lymphocytes (%) (Auto) 25.5 % (20.0-45.0) Monocytes (%) (Auto) 15.5 % (1.0-10.0) H Eosinophils (%) (Auto) 1.8 % (0.0-3.0) Basophils (%) (Auto) 1.3 % (0.0-2.0) Sodium Level 136 MMOL/L (136-145) Potassium Level 3.7 MMOL/L (3.5-5.1) Chloride Level 102 MMOL/L (98-107) Carbon Dioxide Level 26 MMOL/L (21-32) Anion Gap 8 mmol/L (5-15) Blood Urea Nitrogen 9 mg/dL (7-18) Creatinine 0.9 MG/DL (0.55-1.30) Estimat Glomerular Filtration Rate > 60 mL/min (>60) Glucose Level 102 MG/DL (74-106) Calcium Level 8.8 MG/DL (8.5-10.1) Plan Problems: (1) Shoulder abscess Assessment & Plan: 57F with superficial right shoulder abscess s/p I&D. doing well. improved discussed care with patient. area of cellulitis may develop into abscess later but currently slowly improving. may require I&D in office if develops into abscess. continue with wound care. wet to dry TID for a few more days then can do just dressings and no packing okay to d/c from surgical standpoint follow up with me in 1-2 weeks. for wound check Brian Mcmahon Nov 06, 2017 16:06
--- NOTE | 2017-11-06 16:27 | Internal Med Progress Note ---
Subjective Date of Service: Nov 06, 2017 Physician Name Nelson Mejias Attending Physician Andrea Herrera MD Current Medications Medications (Trade) Dose Ordered Sig/Luke Route PRN Reason Start Time Stop Time Status Last Admin Dose Admin Acetaminophen (Tylenol) 650 mg Q4H PRN ORAL T>100.5 11/05/17 14:00 12/03/17 13:59 Acetaminophen/ Hydrocodone Bitart ([place] 5/325) 1 tab Q4H PRN ORAL Moderate Pain (Pain Scale 4-6) 11/05/17 14:00 11/11/17 13:59 Albuterol/ Ipratropium (Albuterol/ Ipratropium) 3 ml Q4H PRN HHN Shortness of Breath 11/05/17 14:00 11/08/17 13:59 Aspirin (Ecotrin) 81 mg DAILY ORAL 11/06/17 09:00 12/05/17 08:59 11/06/17 08:39 Atenolol (Tenormin) 25 mg DAILY ORAL 11/06/17 09:00 12/04/17 08:59 11/06/17 08:39 Atorvastatin Calcium (Lipitor) 40 mg BEDTIME ORAL 11/05/17 21:00 12/03/17 20:59 11/05/17 21:46 Dextrose (Dextrose 50%) STAT PRN IV Hypoglycemia 11/05/17 13:00 12/03/17 12:59 Docusate Sodium (Colace) 100 mg TWICE A DAY ORAL 11/05/17 18:00 12/04/17 17:59 11/06/17 08:39 Guaifenesin/ Dextromethorphan (Robitussin DM Syrup) 10 ml Q6H PRN ORAL For Cough 11/05/17 13:00 12/04/17 12:59 11/05/17 14:35 Heparin Sodium (Porcine) (Heparin 5000 units/ml) 5,000 units EVERY 8 HOURS SUBQ 11/05/17 14:00 12/04/17 21:59 11/06/17 14:16 Morphine Sulfate (Morphine Sulfate) 2 mg Q4H PRN IVP Severe Pain (Pain Scale 7-10) 11/05/17 14:00 11/10/17 13:59 Nitroglycerin (Ntg) 0.4 mg Q5MIN X 3 DOSES PRN SL Prn Chest Pain 11/05/17 13:00 12/03/17 12:59 Ondansetron HCl (Zofran) 4 mg Q6H PRN IVP Nausea & Vomiting 11/05/17 13:00 12/03/17 12:59 Polyethylene Glycol (Miralax) 17 gm DAILYPRN PRN ORAL Constipation 11/05/17 18:00 12/03/17 17:59 Temazepam (Restoril) 15 mg HSPRN PRN ORAL Insomnia 11/05/17 21:00 11/10/17 20:59 Vancomycin HCl (Vanco rx to dose) 1 ea DAILY PRN MISC . 11/05/17 13:00 12/05/17 12:59 Vancomycin HCl/ Dextrose 250 ml @ 166.667 mls/hr Q12HR IVPB 11/05/17 21:00 11/09/17 08:59 11/06/17 08:40 Allergies: Coded Allergies: [place] (Verified Allergy, Unknown, 11/04/17) ROS Limited/Unobtainable: No Constitutional: Reports: no symptoms HEENT: Reports: no symptoms Cardiovascular: Reports: no symptoms Respiratory: Reports: no symptoms Gastrointestinal/Abdominal: Reports: no symptoms Genitourinary: Reports: no symptoms Neurologic/Psychiatric: Reports: no symptoms Subjective 57 YO F admitted with right shoulder pain/abscess. Cover for Int Med-Dr Herrera. Objective Last Vital Signs Date Time Temp Pulse Resp B/P (MAP) Pulse Ox O2 Delivery O2 Flow Rate FiO2 11/06/17 12:00 98.2 64 18 130/78 99 Room Air 11/05/17 10:26 21 Laboratory Tests Test 11/06/17 04:50 White Blood Count 6.2 K/UL (4.8-10.8) Red Blood Count 4.14 M/UL (4.20-5.40) L Hemoglobin 11.8 G/DL (12.0-16.0) L Hematocrit 35.4 % (37.0-47.0) L Mean Corpuscular Volume 85 FL (80-99) Mean Corpuscular Hemoglobin 28.4 PG (27.0-31.0) Mean Corpuscular Hemoglobin Concent 33.3 G/DL (32.0-36.0) Red Cell Distribution Width 12.0 % (11.6-14.8) Platelet Count 268 K/UL (150-450) Mean Platelet Volume 7.2 FL (6.5-10.1) Neutrophils (%) (Auto) 55.9 % (45.0-75.0) Lymphocytes (%) (Auto) 25.5 % (20.0-45.0) Monocytes (%) (Auto) 15.5 % (1.0-10.0) H Eosinophils (%) (Auto) 1.8 % (0.0-3.0) Basophils (%) (Auto) 1.3 % (0.0-2.0) Sodium Level 136 MMOL/L (136-145) Potassium Level 3.7 MMOL/L (3.5-5.1) Chloride Level 102 MMOL/L (98-107) Carbon Dioxide Level 26 MMOL/L (21-32) Anion Gap 8 mmol/L (5-15) Blood Urea Nitrogen 9 mg/dL (7-18) Creatinine 0.9 MG/DL (0.55-1.30) Estimat Glomerular Filtration Rate > 60 mL/min (>60) Glucose Level 102 MG/DL (74-106) Calcium Level 8.8 MG/DL (8.5-10.1) Microbiology Date/Time Source Procedure Growth Status 11/04/17 12:28 Arm Right Gram Stain - Final Resulted 11/04/17 12:28 Wound Culture - Preliminary Staphylococcus Aureus Resulted 11/03/17 20:00 Shoulder Right Gram Stain - Final Resulted 11/03/17 20:00 Wound Culture - Preliminary Staphylococcus Aureus Resulted Objective General Appearance: no apparent distress, alert, obese EENT: PERRL/EOMI, normal ENT inspection, TMs normal Neck: non-tender, normal alignment, supple, normal inspection Cardiovascular: normal peripheral pulses, normal rate, regular rhythm, no gallop/murmur, no JVD Respiratory/Chest: chest wall non-tender, lungs clear, normal breath sounds, no respiratory distress, no accessory muscle use Abdomen: normal bowel sounds, non tender, soft, no organomegaly, no mass Extremities: normal range of motion 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 Right shoulder abscess. 2. Morbid obesity. 3. Dehydration. 4. Leukocytosis. 5. Hypertension. 6. Dyslipidemia. 7. Mildly elevated troponin. 8. Culture = Methicillin resistant Staph Aureus PLAN: 1. Admit the patient to [facility]. 2. We will follow up with serial cardiac enzymes. 3. Echocardiogram. 4. Discussed case with Dr. Arredondo of pulmonary/critical care, Dr. Tal Sahu of infectious diseases, and Dr. Brian Mcmahon from general surgery. 5. We will consider I and D of the abscess. 6. Wound care. 7. Broad-spectrum antibiotics with vancomycin and cefepime. 8. We will follow up with cultures and pain medication. 9. Code status is full code. 10. DVT prophylaxis, heparin subcutaneous. 11. ?Discharge am 11/07/17-may require PICC for IV vanco (MRSA)-will discuss with NELSON CARRILLO Nov 06, 2017 16:27
[2017-11-06 17:28] VITALS: BP 134/74
[2017-11-06 20:00] VITALS: BP 134/66
[2017-11-07] VITALS: BP 137/62
[2017-11-07 04:00] VITALS: BP 128/65
[2017-11-07] MEDS: Heparin 5000 units/ml inj SUBQ SCH ×2 (06:22→14:00)
[2017-11-07 08:08] VITALS: BP 140/75
[2017-11-07] MEDS: Atenolol 25mg tab ORAL SCH (08:49)
[2017-11-07] MEDS: Vancomycin 1250mg/D5W 250ml 250 ML IVPB SCH (08:49)
[2017-11-07] MEDS: Aspirin EC 81mg tab ORAL SCH (08:49)
[2017-11-07] MEDS: Docusate 100mg cap ORAL SCH (08:51)
[2017-11-07 09:22] LABS: BASOPHILS % (AUTO) 1.5 % (0.0-2.0); EOSINOPHILS % (AUTO) 2.5 % (0.0-3.0); LYMPHOCYTES % (AUTO) 30.4 % (20.0-45.0); MEAN CORPUSCULAR HEMOGLOBIN 27.6 PG (27.0-31.0); MEAN CORPUSCULAR HGB CONC 31.8 G/DL (32.0-36.0); MEAN CORPUSCULAR VOLUME 87 FL (80-99); MEAN PLATELET VOLUME 6.8 FL (6.5-10.1); MONOCYTES % (AUTO) 11.3 % (1.0-10.0); NEUTROPHILS % (AUTO) 54.4 % (45.0-75.0); PLATELET COUNT 309 K/UL (150-450); RED BLOOD COUNT 4.43 M/UL (4.20-5.40); RED CELL DISTRIBUTION WIDTH 12.2 % (11.6-14.8); WHITE BLOOD COUNT 7.2 K/UL (4.8-10.8)
[2017-11-07 09:23] LABS: ANION GAP 9 mmol/L (5-15); CALCIUM 9.5 MG/DL (8.5-10.1); CARBON DIOXIDE 28 MMOL/L (21-32); CHLORIDE 100 MMOL/L (98-107); CREATININE 1.1 MG/DL (0.55-1.30); GLOMERULAR FILTRATION RATE > 60 mL/min (>60); POTASSIUM 4.4 MMOL/L (3.5-5.1); SODIUM 137 MMOL/L (136-145)
--- NOTE | 2017-11-07 10:27 | Infectious Diseases Prog Note ---
Assessment/Plan Assessment/Plan ASSESSMENT: The patient is a 57-year-old female with Abscess ( over the right shoulder (soft tissue), without involvement of the musculoskeletal Wnd : MSSA Status post leukocytosis. Fever, SP HTN Hysterectomy PLAN: change IV vancomycin d# 4 to Ancef d# 1 , upon DC will cont pt on Keflex 50 0 qid x 10 d ( Rx in chart ) 11/04 SP cefepime d# 1 Monitor CB Monitor BMP Monitor blood culture Subjective Allergies: Coded Allergies: [place] (Verified Allergy, Unknown, 11/04/17) Subjective comfortable Objective Vital Signs Last 24 Hour Vital Signs Date Time Temp Pulse Resp B/P (MAP) Pulse Ox O2 Delivery O2 Flow Rate FiO2 11/07/17 08:49 68 140/75 11/07/17 08:28 68 16 Room Air 11/07/17 08:08 99.2 79 18 140/75 98 Room Air 11/07/17 04:00 98.4 70 18 128/65 98 Room Air 11/07/17 00:00 98.6 72 18 137/62 97 Room Air 11/06/17 20:00 99.4 77 18 134/66 97 Room Air 11/06/17 19:05 79 18 Room Air 11/06/17 17:28 96.3 18 134/74 99 Room Air 11/06/17 12:00 98.2 64 18 130/78 99 Room Air Height (Feet): 5 Height (Inches): 5.00 Weight (Pounds): 255 HEENT: anicteric Respiratory/Chest: no respiratory distress Cardiovascular: no gallop/murmur Abdomen: no organomegaly Microbiology Date/Time Source Procedure Growth Status 11/04/17 12:28 Arm Right Gram Stain - Final Resulted 11/04/17 12:28 Wound Culture - Preliminary Staphylococcus Aureus Resulted Laboratory Tests Test 11/07/17 07:50 White Blood Count 7.2 K/UL (4.8-10.8) Red Blood Count 4.43 M/UL (4.20-5.40) Hemoglobin 12.2 G/DL (12.0-16.0) Hematocrit 38.5 % (37.0-47.0) Mean Corpuscular Volume 87 FL (80-99) Mean Corpuscular Hemoglobin 27.6 PG (27.0-31.0) Mean Corpuscular Hemoglobin Concent 31.8 G/DL (32.0-36.0) L Red Cell Distribution Width 12.2 % (11.6-14.8) Platelet Count 309 K/UL (150-450) Mean Platelet Volume 6.8 FL (6.5-10.1) Neutrophils (%) (Auto) 54.4 % (45.0-75.0) Lymphocytes (%) (Auto) 30.4 % (20.0-45.0) Monocytes (%) (Auto) 11.3 % (1.0-10.0) H Eosinophils (%) (Auto) 2.5 % (0.0-3.0) Basophils (%) (Auto) 1.5 % (0.0-2.0) Sodium Level 137 MMOL/L (136-145) Potassium Level 4.4 MMOL/L (3.5-5.1) Chloride Level 100 MMOL/L (98-107) Carbon Dioxide Level 28 MMOL/L (21-32) Anion Gap 9 mmol/L (5-15) Blood Urea Nitrogen 11 mg/dL (7-18) Creatinine 1.1 MG/DL (0.55-1.30) Estimat Glomerular Filtration Rate > 60 mL/min (>60) Glucose Level 127 MG/DL (74-106) H Calcium Level 9.5 MG/DL (8.5-10.1) Current Medications Medications (Trade) Dose Ordered Sig/Luke Route PRN Reason Start Time Stop Time Status Last Admin Dose Admin Acetaminophen (Tylenol) 650 mg Q4H PRN ORAL T>100.5 11/05/17 14:00 12/03/17 13:59 Acetaminophen/ Hydrocodone Bitart ([place] 5/325) 1 tab Q4H PRN ORAL Moderate Pain (Pain Scale 4-6) 11/05/17 14:00 11/11/17 13:59 Albuterol/ Ipratropium (Albuterol/ Ipratropium) 3 ml Q4H PRN HHN Shortness of Breath 11/05/17 14:00 11/08/17 13:59 Aspirin (Ecotrin) 81 mg DAILY ORAL 11/06/17 09:00 12/05/17 08:59 11/07/17 08:49 Atenolol (Tenormin) 25 mg DAILY ORAL 11/06/17 09:00 12/04/17 08:59 11/07/17 08:49 Atorvastatin Calcium (Lipitor) 40 mg BEDTIME ORAL 11/05/17 21:00 12/03/17 20:59 11/06/17 21:03 Dextrose (Dextrose 50%) STAT PRN IV Hypoglycemia 11/05/17 13:00 12/03/17 12:59 Docusate Sodium (Colace) 100 mg TWICE A DAY ORAL 11/05/17 18:00 12/04/17 17:59 11/06/17 18:51 Guaifenesin/ Dextromethorphan (Robitussin DM Syrup) 10 ml Q6H PRN ORAL For Cough 11/05/17 13:00 12/04/17 12:59 11/05/17 14:35 Heparin Sodium (Porcine) (Heparin 5000 units/ml) 5,000 units EVERY 8 HOURS SUBQ 11/05/17 14:00 12/04/17 21:59 11/07/17 06:22 Morphine Sulfate (Morphine Sulfate) 2 mg Q4H PRN IVP Severe Pain (Pain Scale 7-10) 11/05/17 14:00 11/10/17 13:59 Nitroglycerin (Ntg) 0.4 mg Q5MIN X 3 DOSES PRN SL Prn Chest Pain 11/05/17 13:00 12/03/17 12:59 Ondansetron HCl (Zofran) 4 mg Q6H PRN IVP Nausea & Vomiting 11/05/17 13:00 12/03/17 12:59 Polyethylene Glycol (Miralax) 17 gm DAILYPRN PRN ORAL Constipation 11/05/17 18:00 12/03/17 17:59 Temazepam (Restoril) 15 mg HSPRN PRN ORAL Insomnia 11/05/17 21:00 11/10/17 20:59 Vancomycin HCl (Vanco rx to dose) 1 ea DAILY PRN MISC . 11/05/17 13:00 12/05/17 12:59 Vancomycin HCl/ Dextrose 250 ml @ 166.667 mls/hr Q12HR IVPB 11/05/17 21:00 11/09/17 08:59 11/07/17 08:49 KALEIGH ORTIZ M.D. Nov 07, 2017 10:27
[2017-11-07 12:00] VITALS: BP 149/86
[2017-11-07] MEDS ORDERED: CEPHALEXIN500 MG ORAL (12:58)
--- NOTE | 2017-11-07 13:07 | General Surgery Progress Note ---
General Surgery-Progress Note Subjective Procedure Performed incision and drainage of right shoulder abscess Symptoms: improved Additional Comments pain decreased. doing well. Objective Last 24 Hour Vital Signs Date Time Temp Pulse Resp B/P (MAP) Pulse Ox O2 Delivery O2 Flow Rate FiO2 11/07/17 12:00 98.2 82 20 149/86 98 Room Air 11/07/17 08:49 68 140/75 11/07/17 08:28 68 16 Room Air 11/07/17 08:08 99.2 79 18 140/75 98 Room Air 11/07/17 04:00 98.4 70 18 128/65 98 Room Air 11/07/17 00:00 98.6 72 18 137/62 97 Room Air 11/06/17 20:00 99.4 77 18 134/66 97 Room Air 11/06/17 19:05 79 18 Room Air 11/06/17 17:28 96.3 18 134/74 99 Room Air Dressing: dry Wound: clean Drains: none Cardiovascular: RSR Respiratory: clear Abdomen: soft, non-tender Extremities: other - right shoulder with decreased erythema and cellulitis. small hematoma superficial from I&D resolving. incision c/d/i. no drainage Laboratory Tests Test 11/07/17 07:50 White Blood Count 7.2 K/UL (4.8-10.8) Red Blood Count 4.43 M/UL (4.20-5.40) Hemoglobin 12.2 G/DL (12.0-16.0) Hematocrit 38.5 % (37.0-47.0) Mean Corpuscular Volume 87 FL (80-99) Mean Corpuscular Hemoglobin 27.6 PG (27.0-31.0) Mean Corpuscular Hemoglobin Concent 31.8 G/DL (32.0-36.0) L Red Cell Distribution Width 12.2 % (11.6-14.8) Platelet Count 309 K/UL (150-450) Mean Platelet Volume 6.8 FL (6.5-10.1) Neutrophils (%) (Auto) 54.4 % (45.0-75.0) Lymphocytes (%) (Auto) 30.4 % (20.0-45.0) Monocytes (%) (Auto) 11.3 % (1.0-10.0) H Eosinophils (%) (Auto) 2.5 % (0.0-3.0) Basophils (%) (Auto) 1.5 % (0.0-2.0) Sodium Level 137 MMOL/L (136-145) Potassium Level 4.4 MMOL/L (3.5-5.1) Chloride Level 100 MMOL/L (98-107) Carbon Dioxide Level 28 MMOL/L (21-32) Anion Gap 9 mmol/L (5-15) Blood Urea Nitrogen 11 mg/dL (7-18) Creatinine 1.1 MG/DL (0.55-1.30) Estimat Glomerular Filtration Rate > 60 mL/min (>60) Glucose Level 127 MG/DL (74-106) H Calcium Level 9.5 MG/DL (8.5-10.1) Plan Problems: (1) Shoulder abscess Assessment & Plan: 57F with superficial right shoulder abscess s/p I&D. doing well. improved discussed care with patient. area of cellulitis may develop into abscess later but currently slowly improving. may require I&D in office if develops into abscess. continue with wound care. wet to dry TID for a few more days then can do just dressings and no packing okay to d/c from surgical standpoint follow up with me in 1-2 weeks. for wound check Brian Mcmahon Nov 07, 2017 13:07
[2017-11-07] MEDS ORDERED: ceFAZolin sod 1 GM in D5W 55 ML IVPB SCH (14:00)
--- NOTE | 2017-11-09 09:45 | Discharge Summary ---
Discharge Summary Hospital Course Date of Admission Nov 03, 2017 at 16:11 Date of Discharge Nov 07, 2017 at 15:28 Admitting Diagnosis RT shoulder abscess HPI Justa Ortiz is a 57 year old female who was admitted on Nov 03, 2017 at 16:11 for Right Shoulder Abscess Hospital Course dc summary #[id number] Discharge Medications Continued Medications: Aspirin* (Aspir 81*) 81 Mg Tablet.dr 81 MG ORAL DAILY, TAB Atenolol* (Tenormin*) 25 Mg Tablet 25 MG ORAL DAILY, TAB Atorvastatin Calcium* (Atorvastatin Calcium*) 40 Mg Tablet 40 MG ORAL BEDTIME, TAB Calcium Carbonate (Calcium) 500 Mg Tablet 500 MG PO DAILY Cephalexin* (Keflex*) 500 Mg Capsule 500 MG ORAL EVERY 6 HOURS for 10 Days, #40 CAP Cholecalciferol (Vitamin D3) (Vitamin D) 5,000 Unit Tablet 5000 UNIT PO DAILY Hydrochlorothiazide* (Hydrochlorothiazide*) 12.5 Mg Capsule 12.5 MG ORAL DAILY, CAP Ibuprofen* (Motrin*) 600 Mg Tablet 800 MG ORAL FOUR TIMES A DAY, #30 TAB 0 Refills Discharge Condition Upon Discharge: stable Discharge Disposition Patient was discharged to Home () Discharge Diagnoses: Isaiah (Lisa)Krystal NP Nov 09, 2017 09:45
--- NOTE | 2017-11-10 01:00 | Discharge Summary 2 SIG ---
DATE OF ADMISSION: 11/03/2017 DATE OF DISCHARGE: 11/07/2017 REASON FOR ADMISSION: 57-year-old female with past medical history of hypertension, dyslipidemia, recent bronchitis, presented to emergency department for evaluation. She reported pain and swelling in her right shoulder. She was seen two days prior to ED visit, by primary medical doctor for possible abscess right shoulder and was placed on oral antibiotics. However, the patient stated that she noted increased redness and induration as well as increased pain and discomfort. She denied fever or chills. She denied chest pain and shortness of breath. She was able to move her upper arms. No restriction in movement of the right shoulder. Workup in the emergency room revealed low-grade fever - 99.9. Stable vital signs otherwise. WBC - 14.0. Potassium -3.4, sodium -133, and creatinine -1.4. Troponin with minimal elevation -0.115. EKG revealed normal sinus rhythm. No acute ischemic changes. Chest x-ray revealed no acute cardiopulmonary pathology. The patient was admitted to [facility] for further management with diagnoses of right shoulder abscess, mild elevation in troponin, morbid obesity, dehydration, leukocytosis, hypertension, and dyslipidemia. HOSPITAL COURSE: The patient was admitted to [facility]. Serial troponin were ordered. Next troponin was negative. No cardiac complaints. EKG continued to reveal sinus rhythm, no acute ischemic changes. Echocardiogram revealed preserved ejection fraction of 70% and right ventricular systolic pressure of 21. Elevated troponin was possibly due to infectious process. Surgeon seen and evaluated the patient. CT of the shoulder revealed evidence of soft tissue cellulitis. The patient undergone on the bedside incision and drainage of right shoulder abscess on 11/04/2017. ID doctor closely followed. Blood cultures were negative. Urine cultures was negative. Wound culture revealed Staph aureus , methicillin sensitive. The patient was on the IV antibiotics, which were subsequently changed to oral Keflex for additional 10 days upon discharge as per ID recommendations. Leukocytosis resolved, afebrile. Surgeon closely followed. Pain management was provided, pain decreased. The patient symptomatically improved. Decreased erythema. Small superficial hematoma from incision and drainage was resolving. Incision was clean, dry, intact, and no drainage Blood pressure was managed with beta-lucio and was stable. Aspirin and statin were continued. Supplemental oxygen provided as needed to keep saturation above 92%. The patient with a history of recent bronchitis, still has residual cough. The patient received nebulizing therapy as needed. Pulse oximetry was stable on the room air. Wound care was provided. DVT prophylaxis provided. Bowel regimen instituted. Venous duplex of bilateral lower extremities was negative for acute DVT. Creatinine down to normal. Acute dehydration resolved. The patient was discharged home. FINAL DIAGNOSIS; 1. Right shoulder abscess. 2. Cellulitis, right shoulder. 3. Status post incision and drainage right shoulder abscess. 4. Mild elevation of troponin, single episode, resolved. 5. Leukocytosis, resolved. 6. Hypertension. 7. Morbid obesity. 8. Dehydration. 9. Dyslipidemia. DISCHARGE MEDICATIONS: See medication reconciliation list. DISCHARGE INSTRUCTIONS: The patient was discharged home. FOLLOWUP: Follow up with the primary medical doctor next week. Andrea Herrera M.D. Krystal [facility] CenterMerari NJamison DR: AVILA JOB#: [id number] CC: SEAN
--- NOTE | 2017-11-17 00:11 | Diagnostic Imaging Report ---
APPROVED REPORT CPT Code: 19463 Present Symptoms Comments: R/O DVT BILATERAL: Imaging reveals a patent deep venous system bilaterally. There is no evidence of thrombus within the femoral, popliteal or tibial segments. The greater saphenous veins are also within normal limits. Doppler indicates normal spontaneous flow within these segments.
== END 2017-11-07 15:28 | disposition home or self-care (01) | DRG 580 ==
LOC: EMR 16:07 → 2W 16:11 → EDBEDREQ 17:14 → EDBEDREQSVC 17:16 → 3E 11-05 12:00
PROC: 0J9D0ZZ Drainage of Right Upper Arm Subcutaneous Tissue and Fascia, Open Approach (ICD-10-PCS; principal; 2017-11-04)
DX: L02.413 Cutaneous abscess of right upper limb (principal); Z68.41 Body mass index [BMI] 40.0-44.9, adult; I10 Essential (primary) hypertension; E66.01 Morbid (severe) obesity due to excess calories; L03.113 Cellulitis of right upper limb; E86.0 Dehydration; E78.5 Hyperlipidemia, unspecified; B95.61 Methicillin susceptible Staphylococcus aureus infection as the cause of diseases classified elsewhere
CPT/HCPCS: 36415; 71010; 80048; 80053; 80202; 81003; 82550; 82553; 83605; 83880; 84484; 85025; 85610; 85730; 87040; 87070; 87086; 87181; 87205; 93005; 93306; 93970; 94640; 94664; 99285; J7620

== ENCOUNTER 2019-08-27 21:22 | Emergency (ER) | payer OTHER ==
[~2019-08-27] VITALS: Ht 165.1 cm; Wt 117.9 kg
[~2019-08-27 21:22] MED LIST changes: +ATORVASTATIN CA40 MG ORAL; +BACTRIM DS TAB1 EAC1 ORAL; +CALCIUM500 M2 PO; +CEPHALEXIN500 MG ORAL; +VITAMIN D5000 UNI1 PO
--- NOTE | 2019-08-27 21:40 | NUR ---
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
--- NOTE | 2019-08-27 22:16 | Emergency Room Report ---
History of Present Illness General Chief Complaint: General Complaint Source: Patient Present Illness HPI 58-year-old female with history of hypertension. She presents with complaint of palpitation. Onset this morning. She said her heart rate was skipping beats and it caused her to catch her breath. [place] funny. No syncope. Similar symptom about a year ago. She took an extra dose of her beta-lucio. No symptoms now. Denies any other complaint. No chest pain. No nausea no vomiting. No fever chills. Has been eating a lot of chocolate. Denies any [id number] cough cold medicine. Denies any smoking or coffee. Allergies: Coded Allergies: SULFAMETHOXAZOLE (Verified Allergy, Mild, 08/27/19) TRIMETHOPRIM (Verified Allergy, Mild, 08/27/19) [place] (Verified Allergy, Unknown, 11/04/17) Patient History Past Medical History: see triage record, old chart reviewed, HTN Past Surgical History: none Pertinent Family History: none Social History: Denies: smoking Last Menstrual Period: 2010 Now: No : 1 Para: 1 Reviewed Nursing Documentation: PMH: Agreed; PSxH: Agreed Nursing Documentation-PMH Hx Hypertension: Yes Review of Systems Eye: Denies: eye pain, blurred vision ENT: Denies: ear pain, nose congestion, throat swelling Respiratory: Denies: cough, shortness of breath Cardiovascular: Reports: palpitations; Denies: chest pain Gastrointestinal: Denies: abdominal pain, diarrhea, nausea, vomiting Musculoskeletal: Denies: back pain, joint pain Skin: Denies: rash Neurological: Denies: headache, numbness Endocrine: Denies: increased thirst, increased urine Hematologic/Lymphatic: Denies: easy bruising All Other Systems: negative except mentioned in HPI Physical Exam Vital Signs Date Time Temp Pulse Resp B/P (MAP) Pulse Ox O2 Delivery O2 Flow Rate FiO2 08/27/19 21:23 98.2 69 16 150/81 (104) 95 Room Air Vitals with high blood pressure Sp02 EP Interpretation: reviewed, normal General Appearance: well appearing, no apparent distress, alert Head: normocephalic, atraumatic Eyes: bilateral eye PERRL, bilateral eye EOMI ENT: hearing grossly normal, normal pharynx Neck: full range of motion, supple, no meningismus Respiratory: chest non-tender, lungs clear, normal breath sounds Cardiovascular #1: regular rate, rhythm, no murmur Gastrointestinal: normal bowel sounds, non tender, no mass, no organomegaly, no bruit, non-distended Musculoskeletal: back normal, gait/station normal, normal range of motion Psychiatric: mood/affect normal Medical Decision Making Diagnostic Impression: Primary Impression: Palpitations ER Course This patient presents with palpitation. Could be just PAC or PVC. No evidence of WPW. No evidence of atrial fibrillation. Will need to follow-up with cardiology for Holter monitor if not better or having more frequent episodes. EKG Diagnostic Results Rate: normal Rhythm: NSR ST Segments: no acute changes Rhythm Strip Diag. Results EP Interpretation: yes Rate: 60 Rhythm: NSR, no PVC's, no ectopy Last Vital Signs Date Time Temp Pulse Resp B/P (MAP) Pulse Ox O2 Delivery O2 Flow Rate FiO2 08/27/19 21:23 98.2 69 16 150/81 (104) 95 Room Air Status: unchanged Disposition: HOME, SELF-CARE Condition: Stable Additional Instructions: Follow-up with your doctor in 7 days. If you continue to have these episodes, you may need referral to see a technical support assistant for a Holter monitor. Return if symptoms worsen. Jeffery Mayorga MD Aug 27, 2019 22:16
[2019-08-27 22:25] VITALS: BP 144/74
--- NOTE | 2019-08-28 14:00 | Cardiology Report ---
APPROVED REPORT EKG Measurement Heart [id number] ME [id number] Normal sinus rhythm Normal ECG
== END 2019-08-27 22:25 | disposition home or self-care (01) ==
LOC: EMR 21:58
DX: R00.2 Palpitations (principal); I10 Essential (primary) hypertension; Z88.2 Allergy status to sulfonamides; Z88.1 Allergy status to other antibiotic agents; Z91.018 Allergy to other foods
CPT/HCPCS: 93005; 99283